=== PATIENT | male | born 1945 | race Caucasian/White ===

== ENCOUNTER 2022-09-24 14:09 | Inpatient (IN) | payer MEDICARE, SELFPAY ==
[2022-09-24] VITALS (10 sets, daily range): BP systolic 130–179; BP diastolic 79–120; PULSE 73–144; RESP 17–27; TEMP 36.2; O2SAT 90–96; BMI 26.4
--- NOTE | 2022-09-24 14:34 | XR_ITS ---
WS: [id number] PORTABLE CHEST HISTORY: sob COMPARISON: 10/13/2016 Obscuration of the lower lung son bilaterally due to atelectasis and pleural fluid. More dense con solidation at the LEFT lung base. Mild pulmonary congestion. Small bilateral pleural effusions. No pn eumothorax. Cardiac size: Enlarged heart has progressed since 2017. Mediastinum/Aorta: Normal mediastinum. No osseous abnormality seen. XR/XR chest 1V portable [id number] IMPRESSION: 1. Enlarged cardiac silhouette. Cardiac silhouette has significantly increased in size since 2017. 2. Bilateral pleural effusions with consolidations at the lung bases. Effusion s are small. More dense consolidation at the LEFT lung base which may be underl gagan atelectasis or pneumonia.
--- NOTE | 2022-09-24 14:45 | W.ED.SOB ---
HPI - SOB/Dyspnea General: Chief Complaint: ER Hold Stated Complaint: SOB, congestion Time Seen by Provider: 09/24/22 14:33 History of Present Illness: HPI Narrative: This patient is a 77 year old presenting from home with shortness of breath and feeling like his heart is beating out of his chest. He has not felt well for about a month, with some cough, malaise, shortness of breath - but the current symptoms really got bad a few days ago. He has had severe SPICER, mild orthopnea. He reports that he had a fib year and years ago (maybe chronically?) but hasn't seen a doctor in years. He is supposed to be on lisinopril for HTN but hasn't been on that for years either. He denies chest pain. No leg swelling. No passing out. Up until a month ago he was very active. Physical Exam Const: COMMON NORMALS: no acute distress, patient oriented x3, no limitations and alert GENERAL APPEARANCE: cooperative and comfortable HENMT: HEAD & SCALP: normal to inspection FACE & SINUS: normal facial exam Eye: GENERAL EYE: appearance normal, both eyes and all related structures Neck/C-Spine: COMMON NORMALS: supple, no meningeal signs and no JVD Chest: COMMONS NORMALS: normal inspection of the chest Resp: EFFORT & INSPECTION: Yes tachypneic and Yes uses accessory muscles AUSCULTATION: rales bilateral Cardio: COMMON NORMALS: no JVD, regular rate, regular rhythm and No murmurs present (Cardio) RATE: regular rate and tachycardic RHYTHM: regular rhythm and abnormal rhythm irregularly irregular OTHER: no edema GI: COMMON NORMALS: Normal to inspection, nondistended, normoactive bowel sounds present, Soft to palpation and non-tender INSPECTION: Yes normal to inspection AUSCULTATION: Yes normoactive bowel sounds PALPATION: Yes Soft to palpation Back/Pelvis: COMMON NORMALS: thoracic and lumbar spine normal to inspection Extremity: COMMON NORMALS: normal to inspection Neuro: COMMON NORMALS: patient oriented x3, moves all extremities, no focal motor deficits and no sensory deficits noted SENSORIUM/ORIENTATION: Yes alert MENINGEAL SIGNS: Yes no meningeal signs Psych: COMMON NORMALS: mental status grossly normal, cooperative and normal affect Skin: COMMON NORMALS: no rashes or lesions noted and turgor normal GENERAL SKIN EXAM: no rashes or lesions noted and turgor normal Course Vital Signs: Vital signs: Vital Signs Temperature 97.2 F L 09/24/22 14:17 Pulse Rate 90 09/25/22 06:00 Respiratory Rate 17 09/25/22 06:00 Blood Pressure 151/93 09/25/22 06:00 Pulse Oximetry 92 09/25/22 06:00 Oxygen Delivery Me thod 09/25/22 05:14 MDM - SOB/Dyspnea Medical Decision Making Patient with RVR afib, questionable if this is new onset, but he is not on any medications currently. He had a viral infection within the past month - possibly flu with temps of 101 - and hasn't rebounded from that. He is markedly dyspneic - just with having him sit up in bed to listen to his lungs caused 3 word dyspnea for several minutes. Unclear if he has always been in afib and just not treated - or if he has had it paroxysmally or if what he thought was afib in the past was something different. Regradless - work up to find an underlying cause (MA, CHF, PE, infection, myocarditis, electrolyte abnormality, dehydration, anemia, pneumonia) and to manage the tachycardia and dyspnea. Cardizem given as a bolus and heart rate came down to the 80's and appeared to be flutter. He gradually went back up into the 120's and so the drip was started. He is noted to have pleural effusions and cardiomegaly on CXT - as well as a pericardial effusion on CT. No PE. Elevated d-dimer likely related to the effusions. BNP elevated, CXR supports CHF. Will admit for management of fluid status and atrial flutter. Lasix and cardizem administered in the ED. Lab Data 09/24/22 14:46 09/24/22 14:46 Labs/Radiology: Radiology Impressions Chest X-Ray 09/24/22 14:34 IMPRESSION: 1. Enlarged cardiac silhouette. Cardiac silhouette has significantly increased in size since 2017. 2. Bilateral pleural effusions with consolidations at the lung bases. Effusions are small. More dense consolidation at the LEFT lung base which may be underlying atelectasis or pneumonia. Chest CTA 09/24/22 15:25 IMPRESSION: 1. No pulmonary embolism. Limited opacification LEFT lower lobe pulmonary arteries. 2. Small LEFT pleural effusion with LEFT partial LEFT lower lobe atelectasis. 3. Enlarged heart with circumferential pericardial effusion. Heart was near normal size on 10/13/2016 Venous Duplex 09/24/22 18:26 IMPRESSION: No evidence of deep vein thrombosis. Laboratory Results WBC 15.6 10^3/uL (4.0-10.0) H 09/24/22 14:46 RBC 4.74 10^6/uL (4.1-5.3) 09/24/22 14:46 Hgb 13.7 g/dL (11.7-16.6) 09/24/22 14:46 Hct 42.2 % (42.0-52.0) 09/24/22 14:46 MCV 89.0 fl (80-94) 09/24/22 14:46 MCH 28.9 pg (28.0-34.0) 09/24/22 14:46 MCHC 32.5 g/dL (30.0-36.0) 09/24/22 14:46 RDW 12.3 % (12.1-15.1) 09/24/22 14:46 Plt Count 402 10^3/cmm (130-400) H 09/24/22 14:46 MPV 9.2 fL (7.4-10.4) 09/24/22 14:46 Neut % (Auto) 80.7 % 09/24/22 14:46 Lymph % (Auto) 12.2 % 09/24/22 14:46 [place] % (Auto) 5.7 % 09/24/22 14:46 Eos % (Auto) 0.3 % 09/24/22 14:46 Baso % (Auto) 0.3 % 09/24/22 14:46 Neut # (Auto) 12.62 10^3/uL (1.8-7.7) H 09/24/22 14:46 Lymph # (Auto) 1.9 10^3/uL (0.8-4.8) 09/24/22 14:46 [place] # (Auto) 0.9 10^3/uL (0.2-0.9) 09/24/22 14:46 Eos # (Auto) 0.0 10^3/uL (0.0-0.8) 09/24/22 14:46 Baso # (Auto) 0.0 10^3/uL (0.0-0.1) 09/24/22 14:46 Nucleated RBC % (auto) 0 % 09/24/22 14:46 Nucleated RBCs # 0.0 /100WBC 09/24/22 14:46 PT 14.50 SECONDS (12.1-14.9) 09/24/22 14:46 INR 1.10 (0.8-1.2) 09/24/22 14:46 D-Dimer 2.58 ug/mIFEU (0-0.59) H 09/24/22 14:46 Sodium 137 mmol/L (136-145) 09/24/22 14:46 Potassium 4.4 mmol/L (3.5-5.1) 09/24/22 14:46 Chloride 103 mmol/L (98-107) 09/24/22 14:46 Carbon Dioxide 21 mmol/L (22-29) L 09/24/22 14:46 Anion Gap 17.4 (5-19) 09/24/22 14:46 BUN 14 mg/dL (8-23) 09/24/22 14:46 Creatinine 0.8 mg/dL (0.7-1.2) 09/24/22 14:46 GFR Calculation Not Reportable 09/24/22 14:46 Glucose 135 mg/dL (65-115) H 09/24/22 14:46 Estimat Average Glucose 128 09/24/22 14:46 Hemoglobin A1c 6.1 % (4.0-6.0) H 09/24/22 14:46 Calculated Osmolality 287 mOsm/kg (285-295) 09/24/22 14:46 Lactic Acid 1.1 mmol/L (0.5-2.2) 09/24/22 20:08 Calcium 9.4 mg/dL (8.5-10.5) 09/24/22 14:46 Magnesium 2.2 mg/dL (1.7-2.3) 09/24/22 14:46 Total Bilirubin 0.5 mg/dL (0.15-1.2) 09/24/22 14:46 AST 14 U/L (0-40) 09/24/22 14:46 ALT 19 U/L (0-41) 09/24/22 14:46 Alkaline Phosphatase 118 U/L (40-130) 09/24/22 14:46 Troponin T Baseline 33 ng/L (0-15) H 09/24/22 14:46 Troponin T 120 Minute 30.72 ng/L (0-15) H 09/24/22 16:24 Delta Troponin T -2.28 ABS# (0-10) L 09/24/22 16:24 Troponin T Hi Sens 6Hr 48.21 ng/L (0-15) H 09/24/22 20:08 Troponin T Hi Sens 6Hr Delta 15.21 ng/L (0-12) H* 09/24/22 20:08 NT-Pro-B Natriuret Pep 6431 pg/mL (0-450) H 09/24/22 14:46 Total Protein 7.3 g/dL (6.6-8.7) 09/24/22 14:46 Albumin 3.7 g/dL (3.5-5.2) 09/24/22 14:46 Globulin 3.6 g/dL (1.3-4.6) 09/24/22 14:46 Triglycerides 60 mg/dL (0-150) 09/24/22 20:08 Cholesterol 152 mg/dL (0-200) 09/24/22 20:08 LDL Cholesterol, Calc 111 mg/dL (50-129) 09/24/22 20:08 HDL Cholesterol 29 mg/dL (60-100) L 09/24/22 20:08 LDL/HDL Ratio 3.83 RATIO (0.00-3.22) H 09/24/22 20:08 Cholesterol/HDL Ratio 5.24 mg/dL (1.0-5.00) H 09/24/22 20:08 Lipase 11 U/L (13-60) L 09/24/22 14:46 Procalcitonin 0.06 ng/mL (0-0.5) 09/24/22 20:08 TSH 0.95 uIU/mL (0.27-4.20) 09/24/22 20:08 Urine Color Colorless (Yellow) 09/24/22 19:34 Urine Appearance Clear (CLEAR) 09/24/22 19:34 Urine pH 6 (5-7) 09/24/22 19:34 Ur Specific [place] 1.010 (1.005-1.030) 09/24/22 19:34 Urine Protein Neg (Negative) 09/24/22 19:34 Urine Glucose (UA) Norm (Normal) 09/24/22 19:34 Urine Ketones Negative (Negative) 09/24/22 19:34 Urine Blood Neg (Negative) 09/24/22 19:34 Urine Nitrate Negative (Negative) 09/24/22 19:34 Urine Bilirubin Neg (Negative) 09/24/22 19:34 Urine Urobilinogen Neg mg/dL (Negative) 09/24/22 19:34 Ur Leukocyte Esterase Negative (Negative) 09/24/22 19:34 Coronavirus 229E (PCR) Not detected (NOT DETECT) 09/24/22 19:34 Influenza Type A Ag negative (Negative) 09/24/22 19:34 Influenza Type B Ag negative (Negative) 09/24/22 19:34 SARS-CoV-2 (PCR) Not detected (NOT DETECT) 09/24/22 19:34 Discharge Plan Discharge Patient Disposition: Admitted As Inpatient Admit Provider: Angela Peters Clinical Impression: Atrial fibrillation and flutter, New onset of congestive heart failure, Pleural effusion, Pericardial effusion, 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) Condition: Stable Coding Level of Care Code ED Household Manager for Chg Fwd Exam Comprehensive
[2022-09-24] MEDS: dilTIAZem 5 mg/mL SDV 5 mL 20 MG IVP (14:52)
[2022-09-24 14:58] LABS: Basophils % 0.3 %; Eosinophils % 0.3 %; Hematocrit 42.2 % (42.0-52.0); Hemoglobin 13.7 g/dL (11.7-16.6); Lymphocytes # 1.9 10^3/uL (0.8-4.8); Lymphocytes % 12.2 %; Mean Corpuscular HGB Conc 32.5 g/dL (30.0-36.0); Mean Corpuscular Hemoglobin 28.9 pg (28.0-34.0); Mean Platelet Volume 9.2 fL (7.4-10.4); Monocytes # 0.9 10^3/uL (0.2-0.9); Monocytes % 5.7 %; Neutrophils # 12.62 10^3/uL (1.8-7.7); Neutrophils % 80.7 %; Nucleated Red Blood Cells % 0 %; Platelet Count 402 10^3/cmm (130-400); Red Blood Count 4.74 10^6/uL (4.1-5.3); Red Cell Distribution Width 12.3 % (12.1-15.1); White Blood Count 15.6 10^3/uL (4.0-10.0)
[2022-09-24 15:14] LABS: D Dimer 2.58 ug/mIFEU (0-0.59)
[2022-09-24 15:18] LABS: Troponin(5th) Baseline 33 ng/L (0-15)
--- NOTE | 2022-09-24 15:25 | CT_ITS ---
WS: [id number] CT CHEST ANGIOGRAPHY WITH REFORMATS HISTORY: CP, SOB TECHNIQUE: Contiguous axial images are obtained through the chest during arterial injection of intrav enous contrast. Images are reconstructed to evaluate the pulmonary arteries. MIP imaging also reviewe d. All CT scans at [facility] use at least one of these dose optimization techniques: automat ed exposure control; mA and/or kV adjustment per patient size (includes targeted exams where dose is matched to clinical indication); or iterative reconstruction. CONTRAST: Omnipaque 350; 95 mL IV. DLP: 438.73 mGy.cm COMPARISON: None available. Adequate opacification of the central pulmonary arteries. No central filling defects. Mixed opacifica tion of blood and contrast in the LEFT lower lobe is due to the atelectasis and pleural effusion. Mil dly prominent pulmonary artery. Atherosclerotic changes within the thoracic aorta. Heart is enlarged. Moderate enlargement greatest involving the LEFT heart chambers. No RIGHT heart strain. Moderate cor onary artery calcifications. Mild diffuse circumferential pericardial effusion. RIGHT tricuspid regur gitation into the IVC and hepatic veins. Breathing motion artifact. There is mild pulmonary edema. Small layering LEFT pleural effusion with a telectasis. No pneumonia. Small mediastinal and hilar lymph nodes. Calcification along the RIGHT diaphragmatic surface. Visualized upper abdomen is negative for acute process. Increase in thoracic kyphosis. CT/CT angio chest PE protcl [id number] IMPRESSION: 1. No pulmonary embolism. Limited opacification LEFT lower lobe pulmonary duran kishore. 2. Small LEFT pleural effusion with LEFT partial LEFT lower lobe atelectasis. 3. Enlarged heart with circumferential pericardial effusion. Heart was near no rmal size on 10/13/2016
[2022-09-24 15:26] LABS: Alanine Aminotransferase 19 U/L (0-41); Albumin Level 3.7 g/dL (3.5-5.2); Alkaline Phosphatase 118 U/L (40-130); Anion Gap 17.4 (5-19); Aspartate Amino Transferase 14 U/L (0-40); Blood Urea Nitrogen 14 mg/dL (8-23); Calcium 9.4 mg/dL (8.5-10.5); Carbon Dioxide 21 mmol/L (22-29); Chloride 103 mmol/L (98-107); Globulin 3.6 g/dL (1.3-4.6); Glucose 135 mg/dL (65-115); Lipase 11 U/L (13-60); Magnesium 2.2 mg/dL (1.7-2.3); NT Pro B Type Natriuretic Pept 6431 pg/mL (0-450); Osmolality Calculated 287 mOsm/kg (285-295); Potassium 4.4 mmol/L (3.5-5.1); Sodium 137 mmol/L (136-145); Total Bilirubin 0.5 mg/dL (0.15-1.2); Total Protein 7.3 g/dL (6.6-8.7)
[2022-09-24] MEDS: iohexol 350 mg/mL 500 mL Btl (per mL) IV (15:40)
--- NOTE | 2022-09-24 15:56 | ECG_ITS ---
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 Measurements Intervals [place] Rate: 112 P: 0 [place]: 0 QRS: -39 QRSD: 119 T: 31 QT: 363 QTc: 496 Interpretive Statements ATRIAL FLUTTER WITH RAPID VENTRICULAR RESPONSE LEFT AXIS DEVIATION [QRS AXIS < -30] INCOMPLETE RIGHT BUNDLE BRANCH BLOCK [90+ ms QRS DURATION, TERMINAL R IN V1/V2, 40+ ms S IN I/aVL/V4/V5/V6] SEPTAL MYOCARDIAL INFARCTION , OF INDETERMINATE AGE [40+ ms Q WAVE IN V1/V2] No previous ECG available for comparison Electronically Signed On 09-24-2022 17:53:13 IMPROVEMENT MANAGER by James Serrano M.D. [id number]
[2022-09-24 16:53] LABS: Troponin 5 2HR 30.72 ng/L (0-15)
[2022-09-24 16:56] LABS: Troponin 5 2HR Delta -2.28 ABS# (0-10)
[2022-09-24] MEDS: FUROsemide 10 mg/mL SDV 4mL 40 MG IVP (17:15)
[2022-09-24] MEDS: dilTIAZem 100 MG in sodium chloride 0.9% (add-van) 100 ML IV (17:16)
--- NOTE | 2022-09-24 17:28 | PM.HP ---
Providers/Chief Complaint Chief Complaint: SOB, congestion History of Present Illness Gianni Patel is a 77 year old male with no significant past medical history except possible atrial fibrillation and hypertension presented to the hospital with shortness of breath and palpitations. He stated that his heart was beating out of his chest. He says he has not been feeling well for about a month and has been having some cough shortness of breath and generalized ill feeling. He says his symptoms have worsened over the last few days. He has been having severe 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 and mild orthopnea. He says he was diagnosed with atrial fibrillation years ago but has not really been treated for it and has not seen a doctor. He says he also apparently had blood pressure and was supposed to be on lisinopril but does not take that either. He denies any chest pain at this time denies lower extremity swelling. Denies dizziness or passing out. He says till about a month ago he has been really active. And then started declining. Denies nausea, vomiting, diarrhea, constipation at this time. He did state that he had some sort of a viral infection within the last month possibly flu he had temperature 101. Unsure if he had COVID or not. ED course: On arrival blood pressure 160/104, respiratory 21, pulse 108, temperature 97.2. Patient Any medications at home. Patient was given a normal saline bolus and Cardizem bolus was given. Heart rate did come down to 80s and appears to be atrial flutter. BNP elevated at 6000. Chest x-ray shows pulmonary edema. Patient started on Cardizem drip and hospitalist requested to admit the patient. Chest x-ray did show enlarged cardiac silhouette since 2017. Bilateral pleural effusions with consolidations at lung bases effusions are small more dense consolidation at left base which may be underlying atelectasis or pneumonia. CTA was done since D-dimer was 2.56. No pulmonary embolism. Limited opacification left lower lobe pulmonary arteries. Small left pleural effusion with left partial left lower lobe atelectasis. Enlarged heart with circumferential pericardial effusion heart was near normal size on . Medications/Allergies Home Medications Medication Instructions Recorded Confirmed Last Taken Type aspirin 325 mg tablet 325 mg PO DAILY PAIN/CHEST PAIN 09/24/22 09/24/22 09/24/22 History Allergies Allergy/AdvReac Type Severity Reaction Status Date / Time No Known Allergies Allergy Verified 09/24/22 15:03 Vitals/I&O/Wt Last Vital Signs Temp 97.2 F L 09/24/22 14:17 Pulse 115 H 09/24/22 17:19 Resp 27 H 09/24/22 17:19 BP 158/110 09/24/22 17:19 Pulse Ox 95 09/24/22 17:19 O2 Del Method 09/24/22 17:19 Weight last 48 hrs Weight 78.925 kg Physical Exam Narrative: General: Alert oriented x3, patient seen sitting up in bed, slightly short of breath. Does not have any conversational dyspnea at this time. However on room air saturating well. HEENT: Normocephalic, atraumatic, EOMI, breathing comfortably okay Cardio: Irregularly irregular tachycardia, normal S1-S2 Respiratory: Bilateral crackles at bases mild rhonchi present. GI: Abdomen soft, nontender, bowel sounds + Extremities: No bilateral lower extremity edema. Data 09/24/22 14:46 09/24/22 14:46 A&P Assessment and plan (1) Hypertension: (2) Atrial fibrillation and flutter: (3) New onset of congestive heart failure: (4) Atelectasis: (5) Pleural effusion: (6) Pericardial effusion: Plan #Atrial fibrillation with RVR #New onset heart failure #Pericardial effusion, circumferential and small in size, does not seem to be tamponade however will rule out #Hypertension #Left pleural effusion with left partial left lower lobe atelectasis #CAD, and previous IN history, unable to give me much history. ? Continue on Cardizem drip at this time and titrate ? Lasix 40 IV daily ? [place] for accurate ins and O's ? Check echo to rule out tamponade ? May need to repeat a limited echo and heart rate is more normal to assess EF accurately ? Hopefully left pleural effusion will improve with Lasix however if it does not we may need to do a thoracentesis ? Check TSH, procalcitonin, hemoglobin A1c, lipid profile ? Check magnesium. Keep potassium above 4 and magnesium above 2. ? Check COVID, influenza ? I will empirically cover for pneumonia with ceftriaxone and azithromycin WBC count is also elevated. ? Patient will need a primary care doctor and cardiology follow-up at discharge ? Trend troponins. EKG did show incomplete right bundle branch block and Q waves in V1 V2. Baseline and 2-hour troponin delta troponin -2.28. 6 hours pending at this time. Full code DVT prophylaxis: Lovenox 40 daily Attestations Medical Necessity Statement*: Patient will cross greater than 2 midnight stay for management of A. fib with RVR n new onset heart failure. Coding Level of Care Code Acute Code for [facility] Fwd Diagnoses Hypertension I10 Atrial fibrillation and flutter I48.91; I48.92 New onset of congestive heart failure I50.9 Atelectasis J98.11 Pleural effusion J90 Pericardial effusion I31.39
--- NOTE | 2022-09-24 18:26 | USR_ITS ---
PROCEDURE INFORMATION: Exam: US Duplex Lower Extremity Veins, Bilateral Exam date and time: 09/24/2022 6:46 PM Age: 77 years old Clinical indication: Other: SOB; Additional info: R/O dvt TECHNIQUE: Imaging protocol: Real-time duplex ultrasound of the bilateral extremities with 2-D seth scale, color Doppler flow and spectral waveform analysis including responses to compression and other maneuvers (when performed) with image documentation. Complete exam focused on the lower extremity veins. COMPARISON: CT abdomen pelvis w con* [id number] 10/13/2016 7:02 PM FINDINGS: Right deep veins: Unremarkable. The common femoral, femoral, proximal profunda femoral and popliteal veins are patent without thrombus. Normal Doppler waveforms. Normal compressibility and/or augmentation response. Right superficial veins: Saphenofemoral junction is patent without thrombus. Left deep veins: Unremarkable. The common femoral, femoral, proximal profunda femoral and popliteal veins are patent without thrombus. Normal Doppler waveforms. Normal compressibility and/or augmentation response. Left superficial veins: Saphenofemoral junction is patent without thrombus. Soft tissues: Unremarkable. US/[place] [id number] IMPRESSION: No evidence of deep vein thrombosis.
[2022-09-24] MEDS: enoxaparin 40 mg/0.4 mL Syringe SUBCUT (19:23)
--- NOTE | 2022-09-24 19:29 | PC.NURSE ---
Pt refused connor catheter placement
[2022-09-24 19:43] LABS: Add Urine Microscopic? NO; Charge for UA Resulting for Rev
[2022-09-24 19:56] LABS: Urine Appearance Clear (CLEAR); Urine Color Colorless (Yellow)
[2022-09-24 19:57] LABS: Bilirubin Urine Neg (Negative); Blood Urine Neg (Negative); Glucose Urine UA Norm (Normal); Ketones Urine Negative (Negative); Leukocyte Esterase Urine Negative (Negative); Nitrate Urine Negative (Negative); Protein Urine Neg (Negative); Urobilinogen Urine Neg (Negative); pH Urine 6 (5-7)
[2022-09-24 20:06] LABS: Influenza A by IFA negative (Negative); Influenza B by IFA negative (Negative)
[2022-09-24 20:55] LABS: Lactic Sepsis W/Reflex 1.1 mmol/L (0.5-2.2)
[2022-09-24 20:56] LABS: Troponin 5 6HR 48.21 ng/L (0-15)
[2022-09-24 20:56] LABS: Estmated Average Glucose 128; Hemoglobin A1C 6.1 % (4.0-6.0)
[2022-09-24 20:57] LABS: Chol HDL Ratio 5.24 mg/dL (1.0-5.00); Cholesterol 152 mg/dL (0-200); HDL Cholesterol 29 mg/dL (60-100); LDL Cholesterol Calculated 111 mg/dL (50-129); LDL HDL Ratio 3.83 RATIO (0.00-3.22); Triglycerides 60 mg/dL (0-150)
[2022-09-24 21:04] LABS: Procalcitonin 0.06 ng/mL (0-0.5)
[2022-09-24 21:06] LABS: Troponin 5 6HR Delta 15.21 ng/L (0-12)
[2022-09-24 21:37] LABS: Adenovirus Not Detected (NOT DETECT); Chlamydia Pneumoniae Not Detected (NOT DETECT); Coronavirus 229E,HKU1,NL63,OC4 Not Detected (NOT DETECT); Human Metapneumovirus Not Detected (NOT DETECT); Human Rhinovirus/Enterovirus Not Detected (NOT DETECT); Influenza A Not Detected (NOT DETECT); Influenza A H1 Not Detected (NOT DETECT); Influenza A H1-2009 Not Detected (NOT DETECT); Influenza A H3 Not Detected (NOT DETECT); Influenza B Not Detected (NOT DETECT); Mycoplasma Pneumoniae Not Detected (NOT DETECT); Parainfluenza Virus Type 1 Not Detected (NOT DETECT); Parainfluenza Virus Type 2 Not Detected (NOT DETECT); Parainfluenza Virus Type 3 Not Detected (NOT DETECT); Parainfluenza Virus Type 4 Not Detected (NOT DETECT); Respiratory Syncytial Virus A Not Detected (NOT DETECT); Respiratory Syncytial Virus B Not Detected (NOT DETECT); SARS-COV-2 Not Detected (NOT DETECT)
--- NOTE | 2022-09-24 21:46 | ECG_ITS ---
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 Measurements Intervals [place] Rate: 87 P: 0 [place]: 0 QRS: -48 QRSD: 118 T: 236 QT: 411 QTc: 495 Interpretive Statements ATRIAL FLUTTER WITH ABERRANT CONDUCTION OR VENTRICULAR PREMATURE COMPLEXES INCOMPLETE RIGHT BUNDLE BRANCH BLOCK [90+ ms QRS DURATION, TERMINAL R IN V1/V2, 40+ ms S IN I/aVL/V4/V5/V6] LEFT ANTERIOR FASCICULAR BLOCK [QRS AXIS <= -45, QR IN I, RS IN II] SEPTAL MYOCARDIAL INFARCTION , OF INDETERMINATE AGE [40+ ms Q WAVE IN V1/V2] MODERATE T-WAVE ABNORMALITY, CONSIDER ANTEROLATERAL ISCHEMIA [-0.1+ mV T-WAVE IN V3-V6] MODERATE T-WAVE ABNORMALITY, CONSIDER INFERIOR ISCHEMIA [-0.1+ mV T-WAVE IN II/aVF] Compared to ECG 09/24/2022 15:56:24 Ventricular premature complex(es) now present Aberrant conduction of supraventricular beat(s) now present Left anterior fascicular block now present Left-axis deviation no longer present Myocardial infarct finding still present Electronically Signed On 09-24-2022 22:58:01 ASSISTANT ANALYST by James Serrano M.D. [id number]
[2022-09-24 21:51] LABS: Thyroid Stimulating Hormone 0.95 uIU/mL (0.27-4.20)
[2022-09-25] VITALS (19 sets, daily range): BP systolic 128–172; BP diastolic 73–96; PULSE 66–90; RESP 14–23; TEMP 37–37.2; O2SAT 91–97; BMI 22.8
[2022-09-25 01:42] LABS: Basophils # 0.1 10^3/uL (0.0-0.1); Basophils % 0.4 %; Eosinophils # 0.1 10^3/uL (0.0-0.8); Eosinophils % 0.7 %; Hematocrit 43.6 % (42.0-52.0); Hemoglobin 14.1 g/dL (11.7-16.6); Lymphocytes # 1.8 10^3/uL (0.8-4.8); Mean Corpuscular HGB Conc 32.3 g/dL (30.0-36.0); Mean Corpuscular Hemoglobin 28.5 pg (28.0-34.0); Mean Corpuscular Volume 88.1 fl (80-94); Mean Platelet Volume 9.1 fL (7.4-10.4); Monocytes # 0.8 10^3/uL (0.2-0.9); Monocytes % 6.3 %; Neutrophils # 9.36 10^3/uL (1.8-7.7); Neutrophils % 76.9 %; Nucleated Red Blood Cells % 0 %; Platelet Count 354 10^3/cmm (130-400); Red Blood Count 4.95 10^6/uL (4.1-5.3); Red Cell Distribution Width 12.3 % (12.1-15.1); White Blood Count 12.2 10^3/uL (4.0-10.0)
[2022-09-25 01:55] LABS: INR 1.13 (0.8-1.2)
[2022-09-25 02:04] LABS: Anion Gap 17.3 (5-19); Blood Urea Nitrogen 12 mg/dL (8-23); Calcium 9.1 mg/dL (8.5-10.5); Carbon Dioxide 25 mmol/L (22-29); Chloride 99 mmol/L (98-107); Glucose 159 mg/dL (65-115); Magnesium 2.1 mg/dL (1.7-2.3); Osmolality Calculated 287 mOsm/kg (285-295); Potassium 4.3 mmol/L (3.5-5.1); Sodium 137 mmol/L (136-145)
[2022-09-25] MEDS: dilTIAZem 100 MG in sodium chloride 0.9% (add-van) 100 ML 10 MG IV (03:14)
--- NOTE | 2022-09-25 06:00 | USCV_ITS ---
Gianni Patel Age: 77 Gender: M : 1945 Exam Date: 09/25/2022 10:44 Ordering Phys: Angela Peters MD Technologist: MARQUIS Exam Location: [facility] [place] Indication: Atrial fibrillation BP: 156 / 81 HR: 80 Rhythm: Atrial fibrillation Technical Quality: Adequate MEASUREMENTS (Male / Female) Normal Values 2D ECHO LV Diastolic Diameter PLAX 5.1 cm 4.2 - 5.9 / 3.9 - 5.3 cm LV Systolic Diameter PLAX 4.3 cm IVS Diastolic Thickness 0.9 cm 0.6 - 1.0 / 0.6 - 0.9 cm IVS Systolic Thickness 1.0 cm LVPW Diastolic Thickness 0.9 cm 0.6 - 1.0 / 0.6 - 0.9 cm LVPW Systolic Thickness 0.9 cm LVOT Diameter 2.3 cm LV Ejection Fraction 2D Teich 31.9 % LV Ejection Fraction MOD 2C 31.8 % LV Ejection Fraction 2C AL 31.7 % LA Diameter 3.9 cm IVC Diameter 2.6 cm M-MODE Aortic Annulus Diameter 3.6 cm LA Ao Ratio MM 1.2 MV E Point Septal Separation 1.4 cm DOPPLER AV Peak Velocity 143.0 cm/s LVOT Peak Velocity 81.0 cm/s AV Area Cont Eq vti 1.9 cm squared AV Area Cont Eq pk 2.4 cm squared MV Area PHT 6.5 cm squared Mitral E to A Ratio 2.1 MV E' Velocity 71.5 cm/s Mitral E to MV E' Ratio 14.3 Mitral E to LV E' Lateral Ratio 14.4 Mitral E to LV E' Septal Ratio 14.1 TR Peak Velocity 208.3 cm/s TR Peak Gradient 17.4 mmHg TV Peak E Velocity 58.0 cm/s Right Atrial Pressure 3.0 mmHg Pulmonary Artery Systolic Pressu 20.4 mmHg PV Peak Velocity 79.0 cm/s FINDINGS Left Ventricle Normal left ventricular cavity size. Increased left ventricular wall thickness. Moderately decreased left ventricular systolic function. Left ventricular ejection fraction is estimated at 35 %. Global left ventricular hypokinesis. Abnormal diastolic function. Right Ventricle Normal right ventricular size and systolic function. Right Atrium Normal right atrial size. Left Atrium Mildly increased left atrial size. Mitral Valve Thickened mitral valve. No mitral valve stenosis. Mild mitral valve regurgitation. Aortic Valve Structurally normal trileaflet aortic valve. No aortic valve stenosis. No aortic valve regurgitation. Tricuspid Valve Structurally normal tricuspid valve. No tricuspid valve stenosis. Trace to mild tricuspid valve regurgitation. Pulmonic Valve Structurally normal pulmonic valve. No pulmonary valve stenosis.No significant pulmonary valve regurgitation. Pericardium Trivial pericardial effusion. No evidence of hemodynamic compromise. Aorta Normal sized aortic root. IVC Dilated IVC with normal respiratory variation. CONCLUSIONS 1. Normal left ventricular cavity size. Increased left ventricular wall thickness. Moderately decreased left ventricular systolic function. Left ventricular ejection fraction is estimated at 35 %. Global left ventricular hypokinesis. Abnormal diastolic function. 2. Mild mitral valve regurgitation. 3. No prior similar studies to compare. Ashlie Larson MD (Electronically Signed) Final Date: 25 September 2022 17:25 Amended: 25 September 2022 17:50 C
[2022-09-25] MEDS: lisinopril 20 mg Tablet PO ×2 (09:14→10:12)
[2022-09-25] MEDS: aspirin 81 mg EC Tablet PO (09:14)
[2022-09-25] MEDS: FUROsemide 10 mg/mL SDV 4mL 40 MG IVP (09:15)
[2022-09-25] MEDS: atorvastatin 40 mg Tablet PO ×2 (10:22→21:05)
[2022-09-25] MEDS: dilTIAZem 60 mg Tablet PO (13:18)
--- NOTE | 2022-09-25 14:59 | PM.CONSULT ---
Documented by User: Ashlie Larson MD 09/25/22 18:40 Providers/Reason For Consult Reason for Consult*: Newly diagnosed heart failure Attending Physician: Angela Peters MD History of Present Illness History of Present Illness Gianni Patel is a 77 year old male presented with c/o shortness of breath and palpitations on and off for sometime.? He also c/o 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 He denies any chest pain, lower extremity swelling, dizziness or passing out.? He gives vague h/o mild heart attack 10+ years ago and coronary angiogram did not show any obstructive disease. He is a former smoker (40+ PKY h/o smoking quit about 10 years ago). On arrival, blood pressure 160/104. He was noted to be in atrial flutter with RVR.? BNP elevated at 6000.? Chest x-ray shows pulmonary edema.? CTA showed?no pulmonary embolism.? Limited opacification left lower lobe pulmonary arteries.? Small left pleural effusion with left partial left lower lobe atelectasis.? He received lasix 40 IV x 1 in ER and was started on cardizem gtt. He feels better. No CP. Review of Systems General: Reports: 10 or more systems reviewed and unremarkable except in HPI and below Const: Denies: fever(s), chills, change in appetite, change in weight, fatigue or malaise Eyes: Denies: change in vision ENMT: Denies: throat pain, swelling of lips/tongue or nasal congestion Card: Reports: edema (minimal); Denies: chest pain Resp: Denies: dyspnea or chest congestion GI: Denies: abdominal pain, nausea, vomiting, heartburn, diarrhea, constipation or hematochezia : Denies: dysuria or hematuria Musc: Denies: back pain, extremity swelling or joint pain Skin/Breast: Denies: rash Psych: Denies: anxiety or depression Endo: Denies: tired all the time Collin/Lymph: Denies: easy bruising, easy bleeding or petechiae All/Imm: Denies: throat swelling or tongue swelling Medications/Allergies Home Medications Medication Instructions Recorded Confirmed Last Taken Type aspirin 325 mg tablet 325 mg PO DAILY PAIN/CHEST PAIN 09/24/22 09/24/22 09/24/22 History Allergies Allergy/AdvReac Type Severity Reaction Status Date / Time No Known Allergies Allergy Verified 09/24/22 15:03 Current Medications Generic Name Dose Route Start Last Admin Trade Name Nahomy PRN Reason Stop Dose Admin Aspirin 81 mg 09/25/22 09:00 09/25/22 09:14 Aspirin 81 Mg Ec Tablet PO 81 mg DAILY MCKENZIE Administration Atorvastatin Calcium 40 mg 09/25/22 10:01 09/25/22 10:22 Atorvastatin 40 Mg Tablet PO 40 mg BEDTIME MCKENZIE Administration Diltiazem HCl 60 mg 09/25/22 13:00 09/25/22 13:18 Diltiazem 60 Mg Tablet PO 60 mg Q6H MCKENZIE Administration Enoxaparin Sodium 40 mg 09/24/22 18:30 09/24/22 19:23 Enoxaparin 40 Mg/0.4 Ml Syringe SUBCUT 40 mg Q24H MCKENZIE Administration Furosemide 40 mg 09/25/22 09:00 09/25/22 09:15 Furosemide 10 Mg/Ml Sdv 4ml IVP 40 mg Q24H MCKENZIE Administration Diltiazem HCl 100 mg/ Sodium 100 mls @ 0 mls/hr 09/24/22 17:15 09/25/22 03:14 Chloride IV 10 mg/hr .Q0M MCKENZIE 10 mls/hr Administration Protocol Per Protocol Lisinopril 20 mg 09/25/22 08:44 09/25/22 10:12 Lisinopril 20 Mg Tablet PO 20 mg DAILY MCKENZIE Administration Vitals/I&O/Wt Last Vital Signs Temp 97.2 F L 09/24/22 14:17 Pulse 74 09/25/22 12:21 Resp 14 09/25/22 12:21 BP 150/94 09/25/22 12:21 Pulse Ox 92 09/25/22 12:21 O2 Del Method 09/25/22 12:21 09/24/22 09/25/22 09/25/22 22:59 06:59 14:59 Intake Total 11.583 / 11.583 104.417 / 116.000 Output Total 1500 / 1500 1000 / 1000 Balance 11.583 / 11.583 -1395.583 / -1384.000 -1000 / -1000 Weight last 48 hrs Weight 174 lb Physical Exam Const: COMMON NORMALS: no acute distress, patient oriented x3 and alert GENERAL APPEARANCE: cooperative, comfortable, well kempt and well hydrated HENMT: COMMON NORMALS: hearing grossly normal bilaterally and external ears normal FACE & SINUS: normal facial exam EXTERNAL EAR: Yes external ears normal Eye: COMMON NORMALS: EOMs intact bilaterally and no scleral icterus GENERAL EYE: appearance normal, both eyes and all related structures ALIGNMENT: Yes alignment normal Neck/C-Spine: COMMON NORMALS: supple and no JVD GENERAL: Yes normal visual inspection CAROTIDS: Yes normal carotid upstroke Chest: COMMONS NORMALS: normal inspection of the chest and normal palpation of entire chest wall CHEST: Yes Symmetrical chest wall rise and No tenderness Resp: COMMON NORMALS: clear to auscultation bilaterally AUSCULTATION: clear to auscultation bilaterally, no crackles, no rales, no rhonchi and no wheezes Cardio: COMMON NORMALS: no JVD, regular rate, S1 normal heart sound present and S2 normal heart sound present PALPATION: normal PMI RATE: regular rate HEART SOUNDS: S1 normal heart sound present, S2 normal heart sound present, no murmurs and Abnormal heart opening sounds other (irregular) BRUITS: no carotid bruits GI: COMMON NORMALS: Soft to palpation AUSCULTATION: Yes normoactive bowel sounds PALPATION: Yes Soft to palpation, No Tenderness to palpation present (GI), No Guarding due to palpation present (GI) and No Rigid due to palpation Extremity: GENERAL: No cyanosis, Yes edema (trace) and No pallor Neuro: COMMON NORMALS: patient oriented x3 and no focal motor deficits SENSORIUM/ORIENTATION: Yes alert Psych: COMMON NORMALS: Normal thought process present and speech normal APPEARANCE: Yes well kempt SPEECH: Yes normal speech MOOD & AFFECT: Yes euthymic mood THOUGHT PROCESS: Normal thought process present THOUGHT CONTENT: Yes Normal thought content present Data 09/25/22 01:35 09/25/22 01:35 Micro: Microbiology 09/24/22 20:11 Blood Culture - Preliminary Blood SPECIMEN COLLECTED 09/24/22 20:08 Blood Culture - Preliminary Blood SPECIMEN COLLECTED A&P Assessment and plan (1) CHF exacerbation: Newly diagnosed continue IV lasix -started on lisinopril. will start on coreg with plan to uptitrate. -Plan for stress test on Tuesday (2) Atrial flutter: [id number]= 4/9 get off cardizem gtt and start on coreg -start on lovenox (3) Hypertension: BP elelvated Plan Former Smoker Thank you for allowing me to participate in patient's care. Please feel free to call with questions or concerns. Patient seen today via Telehealth by agreement and consent of patient. Telehealth technology used during the visit include video and audio. Exam was conducted with the help of bedside nurse. Time spent in encounter 30 minutes with >50% time spent face to face. Coding Level of Care Code Acute Code for [facility]g Fwd Diagnoses CHF exacerbation I50.9 Atrial flutter I48.92 Hypertension I10 Documented by User: Angela Peters MD 09/25/22 16:42 Providers/Reason For Consult Consulting Physician/Specialty*: Dr. Larson/Cardiology Reason for Consult*: New onset heart failure Medications/Allergies Home Medications Medication Instructions Recorded Confirmed Last Taken Type aspirin 325 mg tablet 325 mg PO DAILY PAIN/CHEST PAIN 09/24/22 09/24/22 09/24/22 History Allergies Allergy/AdvReac Type Severity Reaction Status Date / Time No Known Allergies Allergy Verified 09/24/22 15:03 Data 09/25/22 01:35 09/25/22 01:35 A&P Assessment and plan (1) CHF exacerbation: (2) Atrial flutter: (3) Hypertension: Plan This is Dr. Peters signing this note. I accidentally opened this note while it was still in draft. This note completely belongs to community support worker Dr. Larson. I accidentally opened it. There is no way for me to get out of it without signing it. All information written above will be reflective of Dr. Larson's consult. Coding Level of Care Code Acute Code for Chg Fwd Diagnoses CHF exacerbation I50.9 Atrial flutter I48.92 Hypertension I10
--- NOTE | 2022-09-25 16:10 | P.PN_ITS ---
Subjective Subjective: Seen this morning. Rate controlled at this time. Echo is still pending. Still on Cardizem drip. Rhythm is atrial flutter. Urine output 2500 overnight. Vitals/I&O/Wt Last Vital Signs Temp 97.2 F L 09/24/22 14:17 Pulse 73 09/25/22 15:33 Resp 14 09/25/22 15:33 BP 158/86 09/25/22 15:33 Pulse Ox 92 09/25/22 15:33 O2 Del Method 09/25/22 15:33 09/25/22 09/25/22 09/25/22 06:59 14:59 22:59 Intake Total 104.417 / 116.000 97.667 / 97.667 Output Total 1500 / 1500 1000 / 1000 Balance -1395.583 / -1384.000 -902.333 / -902.333 Weight last 48 hrs Weight 78.925 kg Physical Exam Narrative: General: Alert oriented x3, patient seen sitting up in bed appearing comfortable at this time. at bedside. HEENT: Normocephalic, atraumatic, EOMI, breathing comfortably okay Cardio: Irregularly irregular, rate controlled, normal S1-S2 Respiratory: Lungs clear to auscultation GI: Abdomen soft, nontender, bowel sounds + Extremities: No bilateral lower extremity edema. Data 09/25/22 01:35 09/25/22 01:35 Micro: Microbiology 09/24/22 20:11 Blood Culture - Preliminary Blood SPECIMEN COLLECTED 09/24/22 20:08 Blood Culture - Preliminary Blood SPECIMEN COLLECTED A&P Assessment and plan (1) Hypertension: (2) Atrial fibrillation and flutter: (3) New onset of congestive heart failure: (4) Atelectasis: (5) Pleural effusion: (6) Pericardial effusion: Plan #Atrial fibrillation with RVR #NSTEMI, possibly demand ischemia #New onset heart failure #Pericardial effusion, circumferential and small in size -Echo pending. #Hypertension #Left pleural effusion with left partial left lower lobe atelectasis #CAD, and previous DC history, unable to give me much history. ? Turn off Cardizem drip. Coreg 6.25 twice daily ? Lasix 40 IV daily ? [place] for accurate ins and O's ? Check echo. Results pending at this time. ? Hopefully left pleural effusion will improve with Lasix however if it does not we may need to do a thoracentesis ? TSH 0.95, procalcitonin 0.06. LDL 111, cholesterol 152 ? Delta troponin 15.21 at 6 hours ? Magnesium 2.1. Potassium 4.3. ?COVID and influenza are negative. ? Continue empiric coverage with ceftriaxone and azithromycin. ? Patient will need a primary care doctor and cardiology follow-up at discharge ? Placed on therapeutic Lovenox. ? Stress test on Tuesday. ? Cardiology consulted. Recommendations appreciated ? Continue lisinopril 20 daily Full code DVT prophylaxis: Therapeutic Lovenox. Attestations Medical Necessity Statement*: Stress test on Tuesday. Continue therapeutic Lo venox. Coding Level of Care Code Acute Code for [facility] Diagnoses Hypertension I10 Atrial fibrillation and flutter I48.91; I48.92 New onset of congestive heart failure I50.9 Atelectasis J98.11 Pleural effusion J90 Pericardial effusion I31.39
[2022-09-25] MEDS: enoxaparin 80 mg/0.8 mL Syringe 70 MG SUBCUT (17:32)
[2022-09-25] MEDS: carvedilol 6.25 mg Tablet PO (17:33)
[2022-09-26] VITALS (60 sets, daily range): BP systolic 94–153; BP diastolic 73–99; PULSE 72–115; RESP 15–38; TEMP 36.8–37; O2SAT 92–97
[2022-09-26] MEDS: enoxaparin 80 mg/0.8 mL Syringe 70 MG SUBCUT ×2 (05:09→15:49)
--- NOTE | 2022-09-26 07:42 | PM.PN ---
Subjective Subjective: seen this am no acute events overnight denies chest pain, sob Vitals/I&O/Wt Last Vital Signs Temp 98.3 F 09/26/22 04:00 Pulse 100 09/26/22 05:58 Resp 18 09/26/22 04:00 BP 142/99 09/26/22 04:00 Pulse Ox 96 09/26/22 07:28 O2 Del Method 09/26/22 07:28 09/25/22 09/26/22 09/26/22 22:59 06:59 14:59 Intake Total 120 / 217.667 Output Total 680 / 1680 150 / 1830 Balance -560 / -1462.333 -150 / -1612.333 Weight last 48 hrs Weight 68.039 kg Weight 78.925 kg Physical Exam Narrative: General: Alert oriented x3, patient seen sitting up in bed appearing comfortable at this time HEENT: Normocephalic, atraumatic, EOMI, breathing comfortably okay Cardio:sinus rhythm, rate controlled, normal S1-S2 Respiratory: Lungs clear to auscultation GI: Abdomen soft, nontender, bowel sounds + Extremities: No bilateral lower extremity edema. Data 09/25/22 01:35 09/25/22 01:35 Micro: Microbiology 09/24/22 20:11 Blood Culture - Preliminary Blood NEGATIVE TO DATE 09/24/22 20:08 Blood Culture - Preliminary Blood NEGATIVE TO DATE A&P Assessment and plan (1) Hypertension: (2) Atrial fibrillation and flutter: (3) New onset of congestive heart failure: (4) Atelectasis: (5) Pleural effusion: (6) Pericardial effusion: Plan #Atrial fibrillation with RVR - resolved #NSTEMI, possibly demand ischemia #New onset heart failure #Pericardial effusion, circumferential and small in size -Echo pending. #Hypertension #Left pleural effusion with left partial left lower lobe atelectasis #CAD, and previous [place] history, unable to give me much history. ? continue on Coreg 6.25 twice daily ? Lasix 40 IV daily ? [facility] for accurate ins and O's ? Echo shows: 1. Normal left ventricular cavity size. Increased left ?ventricular wall thickness. Moderately decreased left ?ventricular systolic function. Left ventricular ejection ?fraction is estimated at 35 %. Global left ventricular ?hypokinesis. Abnormal diastolic function. ?2. Mild mitral valve regurgitation. ? TSH 0.95, procalcitonin 0.06. LDL 111, cholesterol 152 ? Delta troponin 15.21 at 6 hours ? Magnesium 2.1. Potassium 4.3. ?COVID and influenza are negative. ? Continue empiric coverage with ceftriaxone and azithromycin. ? Patient will need a primary care doctor and cardiology follow-up at discharge ? Placed on therapeutic Lovenox. ? Stress test on Tuesday. ? Cardiology consulted. Recommendations appreciated ? Continue lisinopril 20 daily Full code DVT prophylaxis: Therapeutic Lovenox. Attestations Medical Necessity Statement*: Stress test on Tuesday. Continue therapeutic Lovenox. Coding Level of Care Code Acute Code for [facility] Diagnoses Hypertension I10 Atrial fibrillation and flutter I48.91; I48.92 New onset of congestive heart failure I50.9 Atelectasis J98.11 Pleural effusion J90 Pericardial effusion I31.39
--- NOTE | 2022-09-26 08:09 | ECG_ITS ---
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 Interpretive Statements NAME OF STUDY: LEXISCAN SESTAMIBI STRESS TEST INDICATION: Newly diagnoised chf PROCEDURE: At the baseline, the blood pressure was 159/85 mm Hg with a heart rate of 109 bpm. The electrocardiogram showed atrial flutter, left axis deviation. Poor anterior R wave progression. Non specific ST-T wave changes. Isolated PVC's/ abberrently conducted beats. The Lexiscan was infused over a period of 20 seconds. A total of 0.4 milligrams of Lexiscan was infused. The stress phase was continued for a total of 5 minutes. Heart rate at the end of the stress phase was 74 bpm with a blood pressure of 159/87 mm Hg. The EKG at the peak infusion revealed no significant ST-T wave changes. ??? Sestamibi was injected 20 seconds after the Lexiscan infusion. ??? Blood pressure at the end of the recovery phase was 103/57 mm Hg with a heart rate of 74 beats per minute. ??? CONCLUSION: 1. No significant EKG changes with the LexiScan infusion. 2. No LexiScan induced chest pain or cardiac arrhythmia. 3. Normal blood pressure and heart rate response. 4. Sestamibi/sestamibi perfusion scan pending; see separate report. Electronically Signed On 10-06-2022 2:31:03 ECOLOGY TEACHER by Ashlie Larson M.D. [id number]
--- NOTE | 2022-09-26 08:11 | P.PN_ITS ---
Subjective Subjective: He is doing well overall, UO last 24 hours Medications: Reviewed: Yes Medication Review Details: Current Medications Acetaminophen (Acetaminophen 325 Mg Tablet) 650 mg PO Q6H PRN PRN Reason: Mild/Mod Pain Or Temp >/= 101 Aspirin (Aspirin 81 Mg Ec Tablet) 81 mg PO DAILY [facility] Last Admin: 09/25/22 09:14 Dose: 81 mg Atorvastatin Calcium (Atorvastatin 40 Mg Tablet) 40 mg PO BEDTIME [facility] Last Admin: 09/25/22 21:05 Dose: 40 mg Carvedilol (Carvedilol 6.25 Mg Tablet) 12.5 mg PO BID [facility] Enoxaparin Sodium (Enoxaparin 80 Mg/0.8 Ml Syringe) 70 mg SUBCUT Q12H [facility] Last Admin: 09/26/22 05:09 Dose: 70 mg Furosemide (Furosemide 10 Mg/Ml Sdv 4ml) 40 mg IVP Q24H [facility] Last Admin: 09/25/22 09:15 Dose: 40 mg Lisinopril (Lisinopril 20 Mg Tablet) 20 mg PO DAILY [facility] Last Admin: 09/25/22 10:12 Dose: 20 mg Ondansetron HCl (Ondansetron 2 Mg/Ml Sdv 2 Ml) 4 mg IVP Q8H PRN PRN Reason: vomiting, or N/V if npo Vitals/I&O/Wt Last Vital Signs Temp 98.5 F 09/26/22 07:52 Pulse 115 H 09/26/22 07:52 Resp 20 H 09/26/22 07:52 BP 142/99 09/26/22 04:00 Pulse Ox 95 09/26/22 07:52 O2 Del Method 09/26/22 07:52 09/25/22 09/26/22 09/26/22 22:59 06:59 14:59 Intake Total 120 / 217.667 Output Total 680 / 1680 150 / 1830 Balance -560 / -1462.333 -150 / -1612.333 Weight last 48 hrs Weight 150 lb Weight 174 lb Physical Exam Const: COMMON NORMALS: no acute distress, patient oriented x3 and alert GENERAL APPEARANCE: cooperative, comfortable, well kempt and well hydrated HENMT: COMMON NORMALS: hearing grossly normal bilaterally and external ears normal FACE & SINUS: normal facial exam EXTERNAL EAR: Yes external ears normal Eye: COMMON NORMALS: EOMs intact bilaterally and no scleral icterus GENERAL EYE: appearance normal, both eyes and all related structures ALIGNMENT: Yes alignment normal Neck/C-Spine: COMMON NORMALS: supple and no JVD GENERAL: Yes normal visual inspection CAROTIDS: Yes normal carotid upstroke Chest: COMMONS NORMALS: normal inspection of the chest and normal palpation of entire chest wall CHEST: Yes Symmetrical chest wall rise and No tenderness Resp: COMMON NORMALS: clear to auscultation bilaterally AUSCULTATION: clear to auscultation bilaterally, no crackles, no rales, no rhonchi and no wheezes Cardio: COMMON NORMALS: no JVD, regular rate, S1 normal heart sound present and S2 normal heart sound present PALPATION: normal PMI RATE: regular rate HEART SOUNDS: S1 normal heart sound present, S2 normal heart sound present, no murmurs and Abnormal heart opening sounds other (irregular) BRUITS: no carotid bruits GI: COMMON NORMALS: Soft to palpation AUSCULTATION: Yes normoactive bowel sounds PALPATION: Yes Soft to palpation, No Tenderness to palpation present (GI), No Guarding due to palpation present (GI) and No Rigid due to palpation Extremity: GENERAL: No cyanosis, No edema and No pallor Neuro: COMMON NORMALS: patient oriented x3 and no focal motor deficits SENSORIUM/ORIENTATION: Yes alert Psych: COMMON NORMALS: Normal thought process present and speech normal APPEARANCE: Yes well kempt SPEECH: Yes normal speech MOOD & AFFECT: Yes euthymic mood THOUGHT PROCESS: Normal thought process present THOUGHT CONTENT: Yes Normal thought content present Data 09/25/22 01:35 09/25/22 01:35 Micro: Microbiology 09/24/22 20:11 Blood Culture - Preliminary Blood NEGATIVE TO DATE 09/24/22 20:08 Blood Culture - Preliminary Blood NEGATIVE TO DATE A&P Assessment and plan (1) CHF exacerbation: Newly diagnosed continue IV lasix -decrease lisinopril to 10 mg and increase coreg. -Plan for stress test tomorrow (2) Atrial flutter: [id number]= 4/9 continue on coreg -started on lovenox (3) Hypertension: BP better controlled. Plan Former Smoker Thank you for allowing me to participate in patient's care. Please feel free to call with questions or concerns. Patient seen today via Telehealth by agreement and consent of patient. Telehealth technology used during the visit include video and audio. Exam was conducted with the help of bedside nurse. Time spent in encounter 20 minutes with >50% time spent face to face. Attestations Medical Necessity Statement*: needs hospital stay for CHF and atrial flutter Coding Level of Care Code Acute Code for Chg Fwd Exam Comprehensive Diagnoses CHF exacerbation I50.9 Atrial flutter I48.92 Hypertension I10
[2022-09-26] MEDS: carvedilol 12.5 mg Tablet PO ×2 (08:39→17:33)
[2022-09-26] MEDS: FUROsemide 10 mg/mL SDV 4mL 40 MG IVP (08:39)
[2022-09-26] MEDS: aspirin 81 mg EC Tablet PO (08:39)
[2022-09-26] MEDS: lisinopril 20 mg Tablet PO (08:39)
[2022-09-26] MEDS: atorvastatin 40 mg Tablet PO (20:46)
[2022-09-27] VITALS (14 sets, daily range): BP systolic 102–124; BP diastolic 55–84; PULSE 69–99; RESP 16–25; TEMP 36.5–36.8; O2SAT 93–97
[2022-09-27] MEDS: enoxaparin 80 mg/0.8 mL Syringe 70 MG SUBCUT ×2 (05:23→16:17)
[2022-09-27] MEDS: LORazepam 2 mg/mL INJ 1 mL 0.5 MG IVP (06:04)
[2022-09-27 06:45] LABS: Basophils # 0.1 10^3/uL (0.0-0.1); Basophils % 0.4 %; Eosinophils # 0.2 10^3/uL (0.0-0.8); Eosinophils % 1.4 %; Hematocrit 40.9 % (42.0-52.0); Hemoglobin 13.4 g/dL (11.7-16.6); Lymphocytes # 2.4 10^3/uL (0.8-4.8); Lymphocytes % 19.9 %; Mean Corpuscular HGB Conc 32.8 g/dL (30.0-36.0); Mean Corpuscular Hemoglobin 28.5 pg (28.0-34.0); Mean Corpuscular Volume 86.8 fl (80-94); Mean Platelet Volume 9.5 fL (7.4-10.4); Monocytes # 0.9 10^3/uL (0.2-0.9); Monocytes % 7.9 %; Neutrophils # 8.23 10^3/uL (1.8-7.7); Neutrophils % 69.6 %; Nucleated Red Blood Cells % 0 %; Platelet Count 337 10^3/cmm (130-400); Red Blood Count 4.71 10^6/uL (4.1-5.3); Red Cell Distribution Width 12.3 % (12.1-15.1); White Blood Count 11.8 10^3/uL (4.0-10.0)
[2022-09-27 06:54] LABS: Anion Gap 13.7 (5-19); Blood Urea Nitrogen 15 mg/dL (8-23); Calcium 8.8 mg/dL (8.5-10.5); Carbon Dioxide 26 mmol/L (22-29); Chloride 96 mmol/L (98-107); Glucose 105 mg/dL (65-115); Osmolality Calculated 275 mOsm/kg (285-295); Potassium 3.7 mmol/L (3.5-5.1); Sodium 132 mmol/L (136-145)
[2022-09-27] MEDS: regadenoson 0.4 Mg/5 ml Syringe IVP (07:38)
[2022-09-27] MEDS: ondansetron 2 mg/ML SDV 2 mL 4 MG IVP (07:48)
--- NOTE | 2022-09-27 08:09 | NMCV_ITS ---
NM nathalia perf SPECT r/s* [id number] Gianni Patel Age: 77 Gender: M : 1945 Exam Date: 09/27/2022 08:09 Ordering Phys: Ashlie Larson MD ([email or web address]) Technologist: RAMANDEEP Gilliam Exam Location: [facility] Indications: CHEST PAIN STRESS TEST Please see separate stress test report in [facility] for full findings IMAGE PROTOCOL Rest/Stress 1 Lexiscan Day Radiopharmaceutical Dose (mCi) Administration Site Administered by Rest: Tc-99m 10.9 IV RAMANDEEP Alvares Sestamibi Stress:Tc-99m 32.8 IV RAMANDEEP Alvares Sestamibi Rest: 27-Sep-2022 60 Discovery 630 Stress: 27-Sep-2022 30 Discovery 630 0.4mg Lexiscan. Images obtained in supine and prone position. SPECT RESULTS Technical Quality: Excellent Raw Data Analysis: Normal Image Corrections: No attenuation or motion correction applied Summed Stress Score: 9 Summed Rest Score: 8 Summed Difference Score: 1 PERFUSION FINDINGS Medium sized perfusion abnormality of basal to mid inferolateral, mid to apical inferior and apical lateral webster with subtle reversibility in apical lateral wall. FUNCTIONAL RESULTS (calculated via Gated SPECT) Stress Image LV EF (%): 28 Stress EDV (mL):198 TID: 0.88 Stress ESV (mL):142 FUNCTIONAL FINDINGS: The left ventricle is normal in size. Transient Ischemia Dilatation of 0.88. The left ventricular ejection fraction is severely reduced with a value of 28%. There is severely decreased wall thickening. IMPRESSIONS 1. Medium sized predominantly fixed perfusion abnormality of basal to mid inferolateral, mid to apical inferior and apical lateral ewbster. 2. This may represent old myocardial infarction in circumflex/ right coronary artery or attenuation artifact. 3. The left ventricular ejection fraction is severely reduced with a value of 28% with global hypokinesis. 4. EKG portion of the study will be reported separately. 5. No significant coronary ischemia based on this study. Ashlie Larson MD (Electronically Signed) Final Date: 27 September 2022 13:22 S
--- NOTE | 2022-09-27 09:09 | PM.PN ---
Subjective Subjective: He feels well and had his stress test this morning Medications: Reviewed: Yes Vitals/I&O/Wt Last Vital Signs Temp 98.3 F 09/27/22 00:00 Pulse 76 09/27/22 07:53 Resp 17 09/27/22 05:15 BP 103/57 09/27/22 07:53 Pulse Ox 95 09/27/22 05:15 O2 Del Method 09/27/22 05:15 09/26/22 09/27/22 09/27/22 22:59 06:59 14:59 Intake Total 680 / 1760 Output Total 1170 / 2370 410 / 2780 Balance -490 / -610 -410 / -1020 Weight last 48 hrs Weight 150 lb Physical Exam Const: COMMON NORMALS: no acute distress, patient oriented x3 and alert GENERAL APPEARANCE: cooperative, comfortable, well kempt and well hydrated HENMT: COMMON NORMALS: hearing grossly normal bilaterally and external ears normal FACE & SINUS: normal facial exam EXTERNAL EAR: Yes external ears normal Eye: COMMON NORMALS: EOMs intact bilaterally and no scleral icterus GENERAL EYE: appearance normal, both eyes and all related structures ALIGNMENT: Yes alignment normal Neck/C-Spine: COMMON NORMALS: supple and no JVD GENERAL: Yes normal visual inspection CAROTIDS: Yes normal carotid upstroke Chest: COMMONS NORMALS: normal inspection of the chest and normal palpation of entire chest wall CHEST: Yes Symmetrical chest wall rise and No tenderness Resp: COMMON NORMALS: clear to auscultation bilaterally AUSCULTATION: clear to auscultation bilaterally, no crackles, no rales, no rhonchi and no wheezes Cardio: COMMON NORMALS: no JVD, regular rate, S1 normal heart sound present and S2 normal heart sound present PALPATION: normal PMI RATE: regular rate HEART SOUNDS: S1 normal heart sound present, S2 normal heart sound present, no murmurs and Abnormal heart opening sounds other (irregular) BRUITS: no carotid bruits GI: COMMON NORMALS: Soft to palpation AUSCULTATION: Yes normoactive bowel sounds PALPATION: Yes Soft to palpation, No Tenderness to palpation present (GI), No Guarding due to palpation present (GI) and No Rigid due to palpation Extremity: GENERAL: No cyanosis, No edema and No pallor Neuro: COMMON NORMALS: patient oriented x3 and no focal motor deficits SENSORIUM/ORIENTATION: Yes alert Psych: COMMON NORMALS: Normal thought process present and speech normal APPEARANCE: Yes well kempt SPEECH: Yes normal speech MOOD & AFFECT: Yes euthymic mood THOUGHT PROCESS: Normal thought process present THOUGHT CONTENT: Yes Normal thought content present Data 09/27/22 05:44 09/27/22 05:44 A&P Assessment and plan (1) CHF exacerbation: Newly diagnosed agree with transitioning to PO lasix -Old [place]/attenuation artifact on stress test. No ischemia. Patient is asymptomatic. continue with medical management -continue with ASA and atorvastatin on discharge. --continue lisinopril 10 mg and coreg. -Possible discharge tomorrow. -f/u with Rosa in 1 week with BMP, Mg, NT Pro-BNP in 1 week. (2) Atrial flutter: [id number]= 4/9 continue on coreg -May transition to DOAC on discharge. (3) Hypertension: BP low normal. Plan Former Smoker Thank you for allowing me to participate in patient's care. Please feel free to call with questions or concerns. Patient seen today via Telehealth by agreement and consent of patient. Telehealth technology used during the visit include video and audio. Exam was conducted with the help of bedside nurse. Time spent in encounter 20 minutes with >50% time spent face to face. Attestations Medical Necessity Statement*: needs hospital stay for med titration Coding Level of Care Code Acute Code for Chg Fwd Diagnoses CHF exacerbation I50.9 Atrial flutter I48.92 Hypertension I10
[2022-09-27] MEDS: aspirin 81 mg EC Tablet PO (10:21)
[2022-09-27] MEDS: FUROsemide 10 mg/mL SDV 4mL 40 MG IVP (10:21)
[2022-09-27] MEDS: carvedilol 12.5 mg Tablet PO ×2 (10:22→17:26)
--- NOTE | 2022-09-27 10:38 | PM.PN ---
Subjective Subjective: Patient is doing fine after cardiac stress test Blood pressure 103/57 No active chest pain or shortness of breath Currently on room air Multiple family members in the room All questions were answered Vitals/I&O/Wt Last Vital Signs Temp 98.3 F 09/27/22 00:00 Pulse 76 09/27/22 07:53 Resp 17 09/27/22 05:15 BP 103/57 09/27/22 07:53 Pulse Ox 95 09/27/22 05:15 O2 Del Method 09/27/22 05:15 09/26/22 09/27/22 09/27/22 22:59 06:59 14:59 Intake Total 680 / 1760 Output Total 1170 / 2370 410 / 2780 Balance -490 / -610 -410 / -1020 Weight last 48 hrs Weight 68.039 kg Physical Exam Narrative: Patient is euvolemic Awake and alert Currently on room air Hemodynamically stable Pleasant and cooperative Interval PERRLA S1, S2 Abdomen soft Data 09/27/22 05:44 09/27/22 05:44 A&P Assessment and plan (1) Atrial flutter: (2) CHF exacerbation: (3) 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): (4) Pericardial effusion: (5) New onset of congestive heart failure: (6) Atrial fibrillation and flutter: (7) Hypertension: Plan New onset CHF Atrial flutter Clinically patient looks euvolemic we will switch to p.o. Lasix instead of IV Excessive snoring, patient has been taking multiple naps in the day, patient stating he lost 10 pounds last few months Might do overnight pulse ox study for sleep study referral outpatient Awaiting cardiac stress test EF 35% LifeVest? As per cardiology Hypertension: Optimize antihypertensive regimen, blood pressure has improved with use of lisinopril Currently on therapeutic Lovenox [id number] 12/12 Attestations Medical Necessity Statement*: Hopefully he will be able to go home in next 24 hours Time Spent in Patient Care: 30 Coding Level of Care Code Acute Code for [facility] Fwd Diagnoses Atrial flutter I48.92 CHF exacerbation I50.9 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) R06.09 Pericardial effusion I31.39 New onset of congestive heart failure I50.9 Atrial fibrillation and flutter I48.91; I48.92 Hypertension I10
--- NOTE | 2022-09-27 12:05 | PC.CHAP ---
Pastoral Care Encounter/Spiritual Assessment Type of Contact [] Declined hospital aide visit [] Patient/Family/Request visit [] Outpatient visit [] Follow-up visit [] Physician referral [] Code/Alert [c\x] Routine visit [] Staff referral [] Actively dying [] Patient sleeping [] Family support [] [] Out of room [] Palliative care [] [] Receiving care in room [] Pre-surgical visit [] Trauma [] Long length of stay [] ICU visit [] Other: Relational/Emotional Strength [x] Patient feels connected with others/family/visitors/staff [] Distress [] Loneliness/isolation [] Abandonment Spirituality of Patient [x] Person of Kenyatta [] Attends Restorationism of their Kenyatta [x] Believes in Prayer [] Reads Bible or Hoahaoism materials [] There are Spiritual issues to be addressed Newspaper Publisher Interventions [x] Prayer [x] Active listening [] Non-anxious presence [] Spiritual/emotional support [] Crisis/trauma care [] Spiritual counseling [] Bereavement support [] Provided bereavement packet [] Provided Bible/devotional materials [] Provided toy/stuffed animal, coloring book to patient or family member [] Provided Communion [] Anointing/[place] [] Salvation [x Impact on Illness or Injury [] Angry [] Fearful [] Anxious [] Often cries [] Exhaustion [] Unable to work [] Unable to attend christian [] Unable to walk/stand [] Unable to read [] Unable to drive [] Unable to eat/drink [] Unable to sleep [] Unable to be with family [] Patient intubated [] Other: Summary Time spent with patient 5 min
[2022-09-27] MEDS: atorvastatin 40 mg Tablet PO (20:42)
[2022-09-28] VITALS (16 sets, daily range): BP systolic 107–135; BP diastolic 69–93; PULSE 70–105; RESP 18–27; TEMP 36.7; O2SAT 91–95
[2022-09-28 04:29] LABS: Erythrocyte Sedimentation Rate 12 mm/hr (0-10)
[2022-09-28] MEDS: enoxaparin 80 mg/0.8 mL Syringe 70 MG SUBCUT (04:50)
[2022-09-28 04:59] LABS: Anion Gap 13.1 (5-19); Blood Urea Nitrogen 18 mg/dL (8-23); C Reactive Protein 43.6 mg/L (0.0-4.9); Calcium 8.7 mg/dL (8.5-10.5); Carbon Dioxide 27 mmol/L (22-29); Chloride 98 mmol/L (98-107); Glucose 104 mg/dL (65-115); Osmolality Calculated 280 mOsm/kg (285-295); Potassium 4.1 mmol/L (3.5-5.1); Sodium 134 mmol/L (136-145)
--- NOTE | 2022-09-28 08:30 | PC.SOCIAL ---
IMM Update pg 2 of IMM updated and reviewed w/ patient. Copy provided and copy dated, initialed and placed in chart.
[2022-09-28] MEDS: carvedilol 12.5 mg Tablet PO (09:31)
[2022-09-28] MEDS: FUROsemide 40 mg Tablet PO (09:31)
[2022-09-28] MEDS: aspirin 81 mg EC Tablet PO (09:31)
[2022-09-28] MEDS: lisinopril 10 mg Tablet PO (09:31)
--- NOTE | 2022-09-28 10:20 | PM.DCS ---
Discharge Providers Date of Admission: 09/25/22 00:00 Date of Discharge: September 28, 2022 Attending Provider at Admission: Angela Peters MD Attending Provider at Discharge: Lizzie Mast MD Diagnoses at Discharge Discharge Diagnosis (1) CHF exacerbation: Status: Acute (2) Atrial flutter: Status: Acute (3) Hypertension: Status: Acute (4) Atrial fibrillation and flutter: Status: Acute (5) New onset of congestive heart failure: Status: Acute (6) Pericardial effusion: Status: Acute (7) 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): Status: Acute Reason for Visit Reason for Visit: SOB, congestion Hospital Course Hospital Course 77-year-old male who was admitted for management and evaluation of symptoms related to new onset CHF, A. fib RVR. Patient was diuresed which improved his dyspnea, cardiology was consulted for EF of 35%, stress test showed fixed defect without any signs of reversible ischemia, Dr. 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 Larson outpatient. He was diagnosed with nocturnal hypoxemia for possible sleep apnea, sleep study referral has been given at the time of discharge. He remained hypertensive as well and responded very well to lisinopril. Physical Exam Narrative: Euvolemic On room air Awake and alert Pleasant and cooperative Discharge Data Studies Completed and Pending Completed Studies During Hospitalization Category Date Time Status CT angio chest PE protcl [id number] Urgent Cat Scan 09/24/22 15:25 Completed Sestamibi Stress Test Request Routine Exams 09/26/22 08:09 Draft XR chest 1V portable [id number] Stat Exams 09/24/22 14:34 Completed NM nathalia perf SPECT r/s* [id number] Routine Nuc Med 09/27/22 08:09 Completed CV. echo complete* [id number] Stat Ultrasound 09/25/22 06:00 Completed US venous duplex lower extremity bilat [CV venous Ultrasound 09/24/22 18:26 [place] [id number]] Urgent Pending at discharge Category Date Time Status Blood Culture Routine Lab 09/24/22 20:11 Results Radiology Impressions Chest X-Ray 09/24/22 14:34 IMPRESSION: 1. Enlarged cardiac silhouette. Cardiac silhouette has significantly increased in size since 2017. 2. Bilateral pleural effusions with consolidations at the lung bases. Effusions are small. More dense consolidation at the LEFT lung base which may be underlying atelectasis or pneumonia. Chest CTA 09/24/22 15:25 IMPRESSION: 1. No pulmonary embolism. Limited opacification LEFT lower lobe pulmonary arteries. 2. Small LEFT pleural effusion with LEFT partial LEFT lower lobe atelectasis. 3. Enlarged heart with circumferential pericardial effusion. Heart was near normal size on 10/13/2016 Venous Duplex 09/24/22 18:26 IMPRESSION: No evidence of deep vein thrombosis. Laboratory Results WBC 11.8 10^3/uL (4.0-10.0) H 09/27/22 05:44 RBC 4.71 10^6/uL (4.1-5.3) 09/27/22 05:44 Hgb 13.4 g/dL (11.7-16.6) 09/27/22 05:44 Hct 40.9 % (42.0-52.0) L 09/27/22 05:44 MCV 86.8 fl (80-94) 09/27/22 05:44 MCH 28.5 pg (28.0-34.0) 09/27/22 05:44 MCHC 32.8 g/dL (30.0-36.0) 09/27/22 05:44 RDW 12.3 % (12.1-15.1) 09/27/22 05:44 Plt Count 337 10^3/cmm (130-400) 09/27/22 05:44 MPV 9.5 fL (7.4-10.4) 09/27/22 05:44 Neut % (Auto) 69.6 % 09/27/22 05:44 Lymph % (Auto) 19.9 % 09/27/22 05:44 Amelia % (Auto) 7.9 % 09/27/22 05:44 Eos % (Auto) 1.4 % 09/27/22 05:44 Baso % (Auto) 0.4 % 09/27/22 05:44 Neut # (Auto) 8.23 10^3/uL (1.8-7.7) H 09/27/22 05:44 Lymph # (Auto) 2.4 10^3/uL (0.8-4.8) 09/27/22 05:44 Amelia # (Auto) 0.9 10^3/uL (0.2-0.9) 09/27/22 05:44 Eos # (Auto) 0.2 10^3/uL (0.0-0.8) 09/27/22 05:44 Baso # (Auto) 0.1 10^3/uL (0.0-0.1) 09/27/22 05:44 Nucleated RBC % (auto) 0 % 09/27/22 05:44 Nucleated RBCs # 0.0 /100WBC 09/27/22 05:44 ESR 12 mm/hr (0-10) H 09/28/22 04:05 PT 14.90 SECONDS (12.1-14.9) 09/25/22 01:35 INR 1.13 (0.8-1.2) 09/25/22 01:35 D-Dimer 2.58 ug/mIFEU (0-0.59) H 09/24/22 14:46 Sodium 134 mmol/L (136-145) L 09/28/22 04:05 Potassium 4.1 mmol/L (3.5-5.1) 09/28/22 04:05 Chloride 98 mmol/L (98-107) 09/28/22 04:05 Carbon Dioxide 27 mmol/L (22-29) 09/28/22 04:05 Anion Gap 13.1 (5-19) 09/28/22 04:05 BUN 18 mg/dL (8-23) 09/28/22 04:05 Creatinine 1.0 mg/dL (0.7-1.2) 09/28/22 04:05 GFR Calculation Not Reportable 09/28/22 04:05 Glucose 104 mg/dL (65-115) 09/28/22 04:05 Estimat Average Glucose 128 09/24/22 14:46 Hemoglobin A1c 6.1 % (4.0-6.0) H 09/24/22 14:46 Calculated Osmolality 280 mOsm/kg (285-295) L 09/28/22 04:05 Lactic Acid 1.1 mmol/L (0.5-2.2) 09/24/22 20:08 Calcium 8.7 mg/dL (8.5-10.5) 09/28/22 04:05 Magnesium 2.0 mg/dL (1.7-2.3) 09/27/22 05:44 Total Bilirubin 0.5 mg/dL (0.15-1.2) 09/24/22 14:46 AST 14 U/L (0-40) 09/24/22 14:46 ALT 19 U/L (0-41) 09/24/22 14:46 Alkaline Phosphatase 118 U/L (40-130) 09/24/22 14:46 Troponin T Baseline 33 ng/L (0-15) H 09/24/22 14:46 Troponin T 120 Minute 30.72 ng/L (0-15) H 09/24/22 16:24 Delta Troponin T -2.28 ABS# (0-10) L 09/24/22 16:24 Troponin T Hi Sens 6Hr 48.21 ng/L (0-15) H 09/24/22 20:08 Troponin T Hi Sens 6Hr Delta 15.21 ng/L (0-12) H* 09/24/22 20:08 C-Reactive Protein 43.6 mg/L (0.0-4.9) H 09/28/22 04:05 NT-Pro-B Natriuret Pep 6431 pg/mL (0-450) H 09/24/22 14:46 Total Protein 7.3 g/dL (6.6-8.7) 09/24/22 14:46 Albumin 3.7 g/dL (3.5-5.2) 09/24/22 14:46 Globulin 3.6 g/dL (1.3-4.6) 09/24/22 14:46 Triglycerides 60 mg/dL (0-150) 09/24/22 20:08 Cholesterol 152 mg/dL (0-200) 09/24/22 20:08 LDL Cholesterol, Calc 111 mg/dL (50-129) 09/24/22 20:08 HDL Cholesterol 29 mg/dL (60-100) L 09/24/22 20:08 LDL/HDL Ratio 3.83 RATIO (0.00-3.22) H 09/24/22 20:08 Cholesterol/HDL Ratio 5.24 mg/dL (1.0-5.00) H 09/24/22 20:08 Lipase 11 U/L (13-60) L 09/24/22 14:46 Procalcitonin 0.06 ng/mL (0-0.5) 09/24/22 20:08 TSH 0.95 uIU/mL (0.27-4.20) 09/24/22 20:08 Urine Color Colorless (Yellow) 09/24/22 19:34 Urine Appearance Clear (CLEAR) 09/24/22 19:34 Urine pH 6 (5-7) 09/24/22 19:34 Ur Specific Whitman 1.010 (1.005-1.030) 09/24/22 19:34 Urine Protein Neg (Negative) 09/24/22 19:34 Urine Glucose (UA) Norm (Normal) 09/24/22 19:34 Urine Ketones Negative (Negative) 09/24/22 19:34 Urine Blood Neg (Negative) 09/24/22 19:34 Urine Nitrate Negative (Negative) 09/24/22 19:34 Urine Bilirubin Neg (Negative) 09/24/22 19:34 Urine Urobilinogen Neg mg/dL (Negative) 09/24/22 19:34 Ur Leukocyte Esterase Negative (Negative) 09/24/22 19:34 Coronavirus 229E (PCR) Not detected (NOT DETECT) 09/24/22 19:34 Influenza Type A Ag negative (Negative) 09/24/22 19:34 Influenza Type B Ag negative (Negative) 09/24/22 19:34 SARS-CoV-2 (PCR) Not detected (NOT DETECT) 09/24/22 19:34 Vitals Last Vital Signs Temp 98.1 F 09/28/22 07:24 Pulse 94 09/28/22 10:06 Resp 18 09/28/22 10:06 BP 135/93 09/28/22 10:06 Pulse Ox 95 09/28/22 10:06 O2 Del Method 09/28/22 08:00 Discharge Plan Discharge Patient Disposition: Home Condition: Stable Prescriptions: New atorvastatin 40 mg Tablet 40 mg PO BEDTIME Qty: 60 2RF aspirin 81 mg Tablet,Delayed Release (Dr/Ec) 81 mg PO DAILY Qty: 60 2RF lisinopril 10 mg Tablet 10 mg PO DAILY Qty: 60 3RF Eliquis 5 mg tablet 5 mg PO BID Qty: 120 5RF Toprol XL 50 mg tablet extended release 24 hr 50 mg PO DAILY Qty: 60 2RF magnesium 200 mg tablet 200 mg PO DAILY Qty: 60 0RF furosemide 40 mg tablet 40 mg PO DAILY Qty: 30 4RF potassium chloride 10 mEq capsule, extended release 10 meq PO DAILY Qty: 30 4RF Discontinued aspirin 325 mg Tablet 325 mg PO DAILY Discharge Orders: Discharge Order (Routine); Ordered 09/28/22 Ordered By: Lizzie Mast Other Ambulatory Orders: Sleep Study/Titration (Routine) Timeframe: 3 Days Facility: [facility] - Location: [facility] Ordered By: Lizzie Mast Referrals: Isaac Arreola MD [Physician] - 10/06/22 10:00 am (Patient would like to establish care w/ Dr. Arreola, if Dr. Arreola is unavailable patient is willing to establish care w/ another physician @ [facility].) Ashlie Larson MD [Physician] - 10/13/22 11:15 am (Your follow up appointment will be with Dr. Lima on 10-13-22 at 11:15 a.m. ) Discharge Diet: Cardiac Discharge Activity: Increase activity as tolerated Patient Instructions: Metoprolol (By mouth) (Lopressor, Toprol XL), Lisinopril (By mouth) (Prinivil, Zestril), Furosemide (By mouth) (Lasix), Potassium Chloride (By mouth) (K-Dur, K-Lisa, K-Tab, Julio Mur), Aspirin (By mouth) (Helder Extra Strength, Helder Aspirin Children's,..., Atorvastatin (By mouth) (Lipitor), Magnesium (By mouth) (CalMag Thins, Coral Calcium, GNC..., Apixaban (By mouth) (Eliquis), Opioid Safety Activity Restrictions/Additional Instructions: Numbers to look for Ideally blood pressure pressures should stay between 120s to 130 mmHg If your blood pressure is below 90 mmhg please do not take lisinopril that day Ideally heart rate number should stay between 70-80 at rest and less than 110 on exertion Below 60 is considered low heart rate do not take metoprolol succinate if your heart rate is below 60 If your heart rate is around 140 that day you can double up your metoprolol dose to make it 100 mg If that is not bring your heart rate down below 110 you will need to come back to the ER If you notice any weight gain or worsening of swelling of legs you can take Lasix whenever you take Lasix take potassium with it Only take potassium when you are taking Lasix otherwise do not take it individually on daily basis You will need sleep study to see how much oxygen we will require overnight You will need echo within 90 days If you have any questions feel free to call cardiology clinic/[facility] Discharge Attestations Time Spent in Discharge Care*: less than 30 min Quality Metrics Clinical Quality Measures [ No reported AMI, CVA or VTE this stay] Coding Level of Care Code Acute [facility] note Diagnoses CHF exacerbation I50.9 Atrial flutter I48.92 Hypertension I10 Atrial fibrillation and flutter I48.91; I48.92 New onset of congestive heart failure I50.9 Pericardial effusion I31.39 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) R06.09
--- NOTE | 2022-09-28 10:30 | PM.PN ---
Subjective Subjective: He is feeling much better. No CP, SOB Medications: Reviewed: Yes Vitals/I&O/Wt Last Vital Signs Temp 98.1 F 09/28/22 07:24 Pulse 94 09/28/22 10:06 Resp 18 09/28/22 10:06 BP 135/93 09/28/22 10:06 Pulse Ox 95 09/28/22 10:06 O2 Del Method 09/28/22 08:00 09/27/22 09/28/22 09/28/22 22:59 06:59 14:59 Intake Total 240 / 360 480 / 480 Output Total 800 / 800 1200 / 2000 200 / 200 Balance -560 / -440 -1200 / -1640 280 / 280 Physical Exam Const: COMMON NORMALS: no acute distress, patient oriented x3 and alert GENERAL APPEARANCE: cooperative, comfortable, well kempt and well hydrated HENMT: COMMON NORMALS: hearing grossly normal bilaterally and external ears normal FACE & SINUS: normal facial exam EXTERNAL EAR: Yes external ears normal Eye: COMMON NORMALS: EOMs intact bilaterally and no scleral icterus GENERAL EYE: appearance normal, both eyes and all related structures ALIGNMENT: Yes alignment normal Neck/C-Spine: COMMON NORMALS: supple and no JVD GENERAL: Yes normal visual inspection CAROTIDS: Yes normal carotid upstroke Chest: COMMONS NORMALS: normal inspection of the chest and normal palpation of entire chest wall CHEST: Yes Symmetrical chest wall rise and No tenderness Resp: COMMON NORMALS: clear to auscultation bilaterally AUSCULTATION: clear to auscultation bilaterally, no crackles, no rales, no rhonchi and no wheezes Cardio: COMMON NORMALS: no JVD, regular rate, S1 normal heart sound present and S2 normal heart sound present PALPATION: normal PMI RATE: regular rate HEART SOUNDS: S1 normal heart sound present, S2 normal heart sound present, no murmurs and Abnormal heart opening sounds other (irregular) BRUITS: no carotid bruits GI: COMMON NORMALS: Soft to palpation AUSCULTATION: Yes normoactive bowel sounds PALPATION: Yes Soft to palpation, No Tenderness to palpation present (GI), No Guarding due to palpation present (GI) and No Rigid due to palpation Extremity: GENERAL: No cyanosis, No edema and No pallor Neuro: COMMON NORMALS: patient oriented x3 and no focal motor deficits SENSORIUM/ORIENTATION: Yes alert Psych: COMMON NORMALS: Normal thought process present and speech normal APPEARANCE: Yes well kempt SPEECH: Yes normal speech MOOD & AFFECT: Yes euthymic mood THOUGHT PROCESS: Normal thought process present THOUGHT CONTENT: Yes Normal thought content present Data 09/27/22 05:44 09/28/22 04:05 A&P Assessment and plan (1) CHF exacerbation: Newly diagnosed (HFrEF; LVEF=35% on echo) -Old [place]/attenuation artifact on stress test. No significant ischemia. Patient has no CP. continue with medical management -continue with ASA and atorvastatin on discharge. --continue lisinopril 10 mg and coreg. No arrhythmias other than atrial fluttr on telemetry. Rate fairly well controlled. -Discharge today on lasix 40 mg and potassium 10 meq. -f/u with Rosa in 1 week with BMP, Mg, NT Pro-BNP in 1 week. (2) Atrial flutter: [id number]= 4/9 continue on coreg and Eliquis 5 mg PO BID on discharge. (3) Hypertension: BP low normal. Plan Former Smoker Thank you for allowing me to participate in patient's care. Please feel free to call with questions or concerns. Patient seen today via Telehealth by agreement and consent of patient. Telehealth technology used during the visit include video and audio. Exam was conducted with the help of bedside nurse. Time spent in encounter 20 minutes with >50% time spent face to face. Attestations Medical Necessity Statement*: stable yo be discharged home today Coding Level of Care Code Acute Code for Chg Fwd Exam Comprehensive Diagnoses CHF exacerbation I50.9 Atrial flutter I48.92 Hypertension I10
[2022-09-28 10:55] LABS: NT Pro B Type Natriuretic Pept 1410 pg/mL (0-450)
--- NOTE | 2022-09-28 12:50 | PC.NURSE ---
Pt discharged home. Pt's IV taken out. No redness or swelling or excess bleeding noted. Pt tolerated well. Pts discharge instructions given along with prescriptions and follow up appointments. Pt had no c/o pain or discomfort at the time of discharge. Pt taken out via wheelchair accompanied by family and staff.
== END 2022-09-28 11:50 | disposition home or self-care (01) | DRG 291 ==
LOC: ER 20:46 → ER IP 09-25 05:58 → CSU 09-25 15:01
PROVIDERS: Internal Medicine Cardiovascular Disease; Admitting Provider Internal Medicine; Emergency Provider Emergency Medicine; Visit Provider Internal Medicine
DX: I11.0 Hypertensive heart disease with heart failure (principal); I50.21 Acute systolic (congestive) heart failure; I31.39 Other pericardial effusion (noninflammatory); I48.92 Unspecified atrial flutter; J98.11 Atelectasis; I48.91 Unspecified atrial fibrillation; I25.10 Atherosclerotic heart disease of native coronary artery without angina pectoris; I45.10 Unspecified right bundle-branch block; G47.36 Sleep related hypoventilation in conditions classified elsewhere; I25.2 Old myocardial infarction; Z87.891 Personal history of nicotine dependence
CPT/HCPCS: 36415; 71045; 71275; 78452; 80048; 80053; 80061; 81003; 83036; 83605; 83690; 83735; 83880; 84145; 84443; 84484; 85025; 85378; 85610; 85651; 86140; 87040; 87635; 87804; 93005; 93017; 93306; 93970; 94664; 94762; 96365; 96366; 96372; 96374; 96375; 97161; 99291; A9500; J1650; J1940; J2060; J2405; J2785; J3490; Q9967

== ENCOUNTER → 2022-10-13 11:11 | Outpatient (BNVA) | payer OTHER, MEDICARE, SELFPAY | PROVIDERS: PCP Family Medicine Adult Medicine; Visit Provider Internal Medicine Cardiovascular Disease | DX: I11.0 Hypertensive heart disease with heart failure (principal); I50.9 Heart failure, unspecified; I48.91 Unspecified atrial fibrillation; I48.92 Unspecified atrial flutter; Z79.01 Long term (current) use of anticoagulants; J90 Pleural effusion, not elsewhere classified; I31.39 Other pericardial effusion (noninflammatory); Z87.891 Personal history of nicotine dependence | CPT/HCPCS: 99214 ==

== ENCOUNTER → 2022-12-23 08:56 | Outpatient (BNVA) | payer MEDICARE, SELFPAY | PROVIDERS: PCP Family Medicine Adult Medicine; Visit Provider Nurse Practitioner Family | DX: I11.0 Hypertensive heart disease with heart failure (principal); I50.9 Heart failure, unspecified; I48.91 Unspecified atrial fibrillation; I48.92 Unspecified atrial flutter; Z79.01 Long term (current) use of anticoagulants; Z79.82 Long term (current) use of aspirin | CPT/HCPCS: 99214 ==

== ENCOUNTER 2023-01-11 10:07 | Outpatient (CLI) | payer MEDICARE, SELFPAY ==
[2023-01-11 11:28] LABS: Blood Urea Nitrogen 17 mg/dL (8-23); Calcium 8.8 mg/dL (8.5-10.5); Carbon Dioxide 28 mmol/L (22-29); Chloride 102 mmol/L (98-107); Glucose 91 mg/dL (65-115); NT Pro B Type Natriuretic Pept 1048 pg/mL (0-450); Osmolality Calculated 289 mOsm/kg (285-295); Sodium 139 mmol/L (136-145)
== END 2023-01-11 10:08 | disposition home or self-care (01) ==
PROVIDERS: PCP Family Medicine Adult Medicine; Visit Provider Nurse Practitioner Family
DX: I50.9 Heart failure, unspecified (principal)
CPT/HCPCS: 36415; 80048; 83880

== ENCOUNTER → 2023-02-09 13:40 | Outpatient (BNVA) | payer OTHER, SELFPAY | PROVIDERS: PCP Family Medicine Adult Medicine; Visit Provider Internal Medicine Cardiovascular Disease | DX: I48.91 Unspecified atrial fibrillation (principal); I48.92 Unspecified atrial flutter; I11.0 Hypertensive heart disease with heart failure; I50.9 Heart failure, unspecified; I25.10 Atherosclerotic heart disease of native coronary artery without angina pectoris; K21.9 Gastro-esophageal reflux disease without esophagitis; Z79.01 Long term (current) use of anticoagulants; Z79.82 Long term (current) use of aspirin | CPT/HCPCS: 99214 ==

== ENCOUNTER → 2023-04-05 14:38 | Outpatient (BNVA) | payer OTHER, SELFPAY | PROVIDERS: PCP Family Medicine Adult Medicine; Visit Provider Nurse Practitioner Family | DX: I11.0 Hypertensive heart disease with heart failure (principal); I50.9 Heart failure, unspecified; I25.10 Atherosclerotic heart disease of native coronary artery without angina pectoris | CPT/HCPCS: 36415; 80048; 83880; 99214 ==

== ENCOUNTER → 2023-08-17 14:47 | Outpatient (BNVA) | payer OTHER, SELFPAY | PROVIDERS: Visit Provider Internal Medicine Cardiovascular Disease | DX: I11.0 Hypertensive heart disease with heart failure (principal); I50.9 Heart failure, unspecified; I48.91 Unspecified atrial fibrillation; I48.92 Unspecified atrial flutter; I25.10 Atherosclerotic heart disease of native coronary artery without angina pectoris; K21.9 Gastro-esophageal reflux disease without esophagitis | CPT/HCPCS: 99214 ==

== ENCOUNTER → 2024-02-28 08:56 | Outpatient (BNVA) | payer OTHER, SELFPAY | PROVIDERS: Visit Provider Nurse Practitioner Family | DX: I11.0 Hypertensive heart disease with heart failure (principal); I50.22 Chronic systolic (congestive) heart failure; I48.91 Unspecified atrial fibrillation; I48.92 Unspecified atrial flutter; Z79.01 Long term (current) use of anticoagulants; Z79.82 Long term (current) use of aspirin | CPT/HCPCS: 99214 ==

== ENCOUNTER 2024-03-13 10:52 | Outpatient (CLI) | payer OTHER, SELFPAY ==
--- NOTE | 2024-03-13 11:15 | USCV_ITS ---
Gianni Patel Age: 78 Gender: M : 1945 Exam Date: 03/13/2024 11:01 Ordering Phys: Rosa Cummings Technologist: SARAH [place] [facility] [place] b[place] Risk Factors: Previous Vascular Surgery: Right Brachial BP: / Left Brachial BP: / Right Left Velocity (cm/s) Spectral Plaque Velocity (cm/s) Spectral Plaque Syst/Diast Broadening Syst/Diast Broadening 88.00/ 25.80 Prox CCA 83.20 / 15.80 141.40/30.30 Mid CCA 83.80 / 19.90 108.70/28.10 Distal CCA 60.00 / 13.00 87.00/ 26.50 Prox ICA 239.90/ 128.50 124.00/43.30 Mid ICA 525.50/ 273.50 113.90/43.30 Distal ICA 62.70 / 14.40 188.50 ECA 180.20 1.10 ICA/CCA 8.80 Antegrade Vertebral Antegrade 69.40/ 9.60 cm/s 59.80/ 22.60 cm/s Tri Subclavian Tri 92.50 177.1 0 CONCLUSIONS Right ICA stenosis <50%. Moderate calcified plaque Left ICA stenosis 70-99%. Markedly elevated velocities MID ICA. Recommend further evaluation with CTA. High grade stenosis LEFT MID ICA. Severe calcified plaque Intimal thickening in the common carotid arteries and internal carotid arteries bilaterally. Scattered plaque in both CCA. Normal antegrade Doppler flow noted in the right vertebral artery. Normal antegrade Doppler flow noted in the left vertebral artery. Billy Gomez MD (Electronically Signed) Final Date: 13 March 2024 17:47 S
== END 2024-03-13 10:53 | disposition home or self-care (01) ==
LOC: RAD 10:53
PROVIDERS: Visit Provider Nurse Practitioner Family
DX: R09.89 Other specified symptoms and signs involving the circulatory and respiratory systems (principal); I65.23 Occlusion and stenosis of bilateral carotid arteries
CPT/HCPCS: 93880

== ENCOUNTER 2024-03-26 09:39 | Outpatient (CLI) | payer OTHER, SELFPAY ==
--- NOTE | 2024-03-26 10:00 | CT_ITS ---
WS: [id number] CTA HEAD AND NECK TECHNIQUE: Contrast enhanced CTA of the head and neck with coronal and sagittal reformatted images an d maximum intensity projection (MIP) images. NASCET criteria utilized. CLINICAL INFORMATION: carotid duplex left ICA stenosis- high grade COMPARISON: Ultrasound 03/13/2024 DLP: 1249.[address] scans at [facility] use at least one of these dose optimization techniques: automated e xposure control; mA and/or kV adjustment per patient size (includes targeted exams where dose is matc hed to clinical indication); or iterative reconstruction. FINDINGS: RIGHT: RIGHT common carotid artery is patent. Calcified atheromatous plaque RIGHT carotid bulb extend ing into the ICA. RIGHT ICA stenosis measures 53%. RIGHT ICA is patent to the skull base. LEFT: LEFT common carotid artery is patent. Moderate calcified atheromatous plaque LEFT carotid bulb extending to the ICA. LEFT ICA stenosis measures 80% 1.5 cm distal to the bifurcation. Area of steno sis extends over approximately 1.0 cm with tiny residual ICA lumen. LEFT ICA reduced in caliber but p atent to the skull base. LEFT dominant vertebral artery. Mild stenosis at the origin of the LEFT vertebral artery. Smaller but patent RIGHT vertebral artery which partially ends in PICA. INTRACRANIAL CTA: Dominant distal LEFT vertebral artery. Basilar artery is patent. Mild stenosis in the proximal basila r artery which remains patent. Persistent RIGHT [employer]. Normal vascularity to the [employer] territory bi laterally. Both ICAs are patent at the skull base. Moderate calcified cavernous carotid atheromatous disease. No rmal vascularity to the IRA and MCA territories bilaterally. No evidence of flow-limiting stenosis or aneurysm. Hypoplastic RIGHT A1 segment. Multinodular thyroid. Straightening of the normal cervical lordosis with moderate spondylitic changes . Disc osteophyte complex worse C3-4 with mild central canal stenosis. CT/CT angio headneck* [id number] IMPRESSION: 1. RIGHT ICA stenosis measures 53% 2. LEFT ICA stenosis measures 80% with reduced caliber LEFT ICA patent to the skull base. Stenosis approximate 1.5 cm distal to the bifurcation. 3. LEFT dominant vertebral artery. Smaller but patent RIGHT vertebral artery w hich partially ends in PICA. 4. No flow-limiting intracranial stenosis. 5. Persistent RIGHT [employer]. 6. Hypoplastic RIGHT A1 segment.
[2024-03-26 10:39] LABS: Blood Urea Nitrogen 26 mg/dL (8-23)
[2024-03-26] MEDS: iohexol 350 mg/mL 500 mL Btl (per mL) IV (10:55)
== END 2024-03-26 09:40 | disposition home or self-care (01) ==
LOC: RAD 09:40
PROVIDERS: Visit Provider Nurse Practitioner Family
DX: I65.23 Occlusion and stenosis of bilateral carotid arteries (principal); I65.02 Occlusion and stenosis of left vertebral artery; E04.2 Nontoxic multinodular goiter; M25.78 Osteophyte, vertebrae; M48.02 Spinal stenosis, cervical region
CPT/HCPCS: 70496; 70498; 82565; 84520; Q9967

== ENCOUNTER 2024-07-08 11:44 | Observation (INO) | payer OTHER, MEDICARE, SELFPAY ==
[2024-07-08] VITALS (15 sets, daily range): BP systolic 90–153; BP diastolic 38–76; PULSE 67–97; RESP 13–21; TEMP 36.7–38.6; O2SAT 92–97; BMI 27.0
--- NOTE | 2024-07-08 11:59 | CTR_ITS ---
PROCEDURE INFORMATION: Exam: CT Abdomen And Pelvis Without Contrast Exam date and time: 07/08/2024 1:20 PM Age: 79 years old Clinical indication: Abdominal pain; Localized; Right lower quadrant (rlq); Additional info: Rlq pain TECHNIQUE: Imaging protocol: Computed tomography of the abdomen and pelvis without contrast. Radiation optimization: All CT scans at this facility use at least one of these dose optimization techniques: automated exposure control; mA and/or kV adjustment per patient size (includes targeted exams where dose is matched to clinical indication); or iterative reconstruction. COMPARISON: CT angio chest PE protcl [id number] 09/24/2022 3:38 PM RADIATION DOSE METRICS: Total DLP (mGy-cm): 698.26 FINDINGS: Lungs: Lung bases are clear. No pleural effusion. Pleural spaces: Calcified pleural scarring involves the right base. Liver: Normal. No mass. Gallbladder and biliary ducts: Normal. No calcified stones. No ductal dilation. Pancreas: Normal. No ductal dilation. Spleen: Normal. No splenomegaly. Adrenal glands: Normal. No mass. Kidneys and ureters: Normal. No hydronephrosis. Stomach and bowel: Unremarkable. No obstruction. No mucosal thickening. Appendix: The appendix is severely inflamed and dilated and contains air as well as multiple appendicolith. The appendix measures 13 mm in diameter and there is surrounding mesenteric inflammation. No sosa abscess is noted. Intraperitoneal space: See Appendix finding. Vasculature: Unremarkable. No abdominal aortic aneurysm. Lymph nodes: Unremarkable. No enlarged lymph nodes. Urinary bladder: Unremarkable as visualized. Reproductive: The prostate gland is abnormally enlarged. Bones/joints: Unremarkable. No acute fracture. Soft tissues: There is a small umbilical hernia containing mesenteric fat. CT/CT abdomen pelvis wo con [id number] IMPRESSION: 1. Acute appendicitis without abscess 2. Prostate enlargement 3. Small umbilical hernia
[2024-07-08 12:22] LABS: Basophils # 0.1 10^3/uL (0.0-0.1); Basophils % 0.3 %; Eosinophils % 0.1 %; Hematocrit 38.3 % (37-53); Lymphocytes # 1.7 10^3/uL (0.8-4.8); Lymphocytes % 8.6 %; Mean Corpuscular HGB Conc 32.6 g/dL (30-55); Mean Corpuscular Hemoglobin 29.8 pg (27-33); Mean Corpuscular Volume 91.2 fl (82-101); Mean Platelet Volume 10.3 fL (7.4-10.4); Monocytes # 1.1 10^3/uL (0.2-0.9); Monocytes % 5.8 %; Neutrophils # 16.43 10^3/uL (1.8-7.7); Neutrophils % 84.6 %; Nucleated Red Blood Cells % 0 %; Platelet Count 232 10^3/cmm (157-399); Red Cell Distribution Width 13.2 % (12.1-15.1); White Blood Count 19.39 10^3/uL (3.29-11.43)
[2024-07-08 12:38] LABS: Alanine Aminotransferase 13 U/L (0-41); Albumin Level 4.3 g/dL (3.5-5.2); Alkaline Phosphatase 120 U/L (40-130); Anion Gap 16.4 (5-19); Aspartate Amino Transferase 14 U/L (0-40); Blood Urea Nitrogen 25 mg/dL (8-23); Calcium 8.6 mg/dL (8.5-10.5); Carbon Dioxide 24 mmol/L (22-29); Chloride 104 mmol/L (98-107); Creatinine Clr Calc Pharmacy 44.3797; Glucose 147 mg/dL (65-115); Lipase 12 U/L (13-60); Osmolality Calculated 297 mOsm/kg (285-295); Potassium 4.4 mmol/L (3.5-5.1); Sodium 140 mmol/L (136-145); Total Bilirubin 0.7 mg/dL (0.15-1.2); Total Protein 7.3 g/dL (6.6-8.7)
--- NOTE | 2024-07-08 12:44 | PC.PHAR ---
Pt is [facility] today but spouse has current med list including 2 new medications, which are Plavix 75mg daily and Lisinopril 10 mg daily as needed for blood pressure.
[2024-07-08] MEDS: sodium chloride 0.9% 1,000 ML 999 ML IV (12:53)
[2024-07-08 13:03] LABS: Bilirubin Urine Negative (Negative); Blood Urine Negative (Negative); Glucose Urine UA Negative (Normal); Ketones Urine Negative (Negative); Leukocyte Esterase Urine Negative (Negative); Nitrate Urine Negative (Negative); Protein Urine Negative (Negative); Specific Gravity, Urine 1.016 (1.005-1.030); Urine Appearance Clear (CLEAR); Urine Color Yellow (Yellow); Urobilinogen Urine 0.2 mg/dL (Negative); pH Urine 7.5 (5-7)
[2024-07-08 13:06] LABS: Add Urine Microscopic? YES; Bacteria Urine None Seen /hpf; Hyaline Casts Urine 1.21 /lpf; RBC Urine 0-2 /hpf (0-2); Squamous Epithelial Cell Urine 0-5 /hpf (0-5); WBC Urine 0-5 /hpf (0-5)
[2024-07-08 13:16] LABS: Add Urine Culture? No
--- NOTE | 2024-07-08 13:44 | ED_ITS ---
HPI - Abdominal Pain 2 General: Chief Complaint: Abdominal Pain Stated Complaint: pain lower right abd, fever Time Seen by Provider: 07/08/24 11:53 History of Present Illness: This patient is a 79-year-old white male who presents to the emergency department complaining of right lower quadrant abdominal pain. He states this came on around 3:00 this morning. He has not had any associated nausea or vomiting. He does have chronic constipation. Has been running a low-grade fever. His temp has been 100.3 this morning. Patient states he has never had any surgery on his abdomen. Associated Symptoms: Reports fever(s) Related Data Home Medications Medication Instructions Recorded Confirmed calcium carbonate (Tums) 200 mg PO BID PRN Indigestion 12/23/22 07/08/24 famotidine 20 mg tablet (Pepcid AC) 20 mg PO DAILY PRN Acid Reflux 12/23/22 07/08/24 nitroglycerin 0.4 mg sublingual 0.4 mg sublingual Q5M PRN Chest 12/23/22 07/08/24 tablet (Nitrostat) Pain furosemide 40 mg tablet 40 mg PO DAILY 01/12/23 07/08/24 potassium chloride 20 mEq 20 meq PO DAILY 02/09/23 07/08/24 tablet,extended release alprazolam 0.25 mg tablet 0.25 mg PO DAILY 02/28/24 07/08/24 clopidogrel 75 mg tablet (Plavix) 75 mg PO DAILY 07/08/24 07/08/24 lisinopril 10 mg tablet 10 mg PO DAILY PRN Blood Pressure 07/08/24 07/08/24 magnesium oxide 400 mg PO DAILY 07/08/24 07/08/24 metoprolol succinate 100 mg 100 mg PO DAILY 07/08/24 07/08/24 tablet,extended release 24 hr (Toprol XL) Previous Rx's Medication Instructions Recorded apixaban 5 mg tablet (Eliquis) 5 mg PO BID #120 tabs 09/28/22 aspirin 81 mg tablet,delayed 81 mg PO DAILY #60 tabs 09/28/22 release sacubitril 97 mg-valsartan 103 mg 1 tab PO BID #180 tabs 01/14/23 tablet Allergies Allergy/AdvReac Type Severity Reaction Status Date / Time No Known Allergies Allergy Verified 02/28/24 09:10 Review of Systems 2 General: Reports: 10 or more systems reviewed and unremarkable except in HPI and below Const: Reports: fever(s) GI: Reports: abdominal pain PFSH ED 2 PFSH: Medical History CHF (congestive heart failure), NYHA class III Prediabetes 09/24/2022 A1C 6.1 CAD (coronary artery disease) [place] in 2002 Chronic GERD Current non-smoker Smoked for 50 years and quit 10 years ago ~ 2012 Snoring Atrial flutter 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) Pericardial effusion Pleural effusion Atelectasis New onset of congestive heart failure [place] & Htn, new CHF admit [facility] 12/01/2022, ~39% LVEF Atrial fibrillation and flutter Hypertension Physical Exam 2 Const: COMMON NORMALS: no acute distress, patient oriented x3 and no limitations GENERAL APPEARANCE: cooperative and comfortable HENMT: COMMON NORMALS: normocephalic, atraumatic, Normal nasal mucous membranes and turbinates present, moist oral mucous membranes and oropharynx normal HEAD & SCALP: normal to inspection, normocephalic and atraumatic F MAHESH & SINUS: normal facial exam NOSE: Normal nasal mucous membranes and turbinates present Eye: COMMON NORMALS: Equal, round and reactive pupils present, EOMs intact bilaterally and conjunctivae normal GENERAL EYE: appearance normal, both eyes and all related structures CONJUNCTIVA: Yes conjunctivae normal PUPIL: Yes Equal, round and reactive pupils present Neck/C-Spine: COMMON NORMALS: supple and no JVD Chest: COMMONS NORMALS: normal inspection of the chest Resp: COMMON NORMALS: normal respiratory effort and clear to auscultation bilaterally AUSCULTATION: clear to auscultation bilaterally Cardio: COMMON NORMALS: no JVD, regular rate, regular rhythm, No gallops present (Cardio), No murmurs present (Cardio) and No rub (Cardio) RATE: r egular rate RHYTHM: regular rhythm GI: COMMON NORMALS: Soft to palpation AUSCULTATION: Yes normoactive bowel sounds PALPATION: Yes Soft to palpation and Yes Tenderness to palpation present (GI) Details: RLQ : COMMON NORMALS: Yes no CVA tenderness BLADDER/KIDNEY EXAM: Yes no CVA tenderness Back/Pelvis: COMMON NORMALS: no CVA tenderness and thoracic and lumbar spine normal to inspection Extremity: COMMON NORMALS: normal to inspection Neuro: COMMON NORMALS: patient oriented x3 and CN's II-XII intact bilaterally Psych: COMMON NORMALS: mental status grossly normal, Normal thought process present and cooperative THOUGHT PROCESS: Normal thought process present Skin: COMMON NORMALS: no rashes or lesions noted, turgor normal and no jaundice GENERAL SKIN EXAM: no rashes or lesions noted and turgor normal Course 2 Vital Signs: Vital signs: Vital Signs Temperature 99.1 F 07/08/24 11:51 Pulse Rate 88 07/08/24 12:55 Respiratory Rate 16 07/08/24 12:55 Blood Pressure 130/65 07/08/24 12:55 Pulse Oximetry 96 07/08/24 12:55 Oxygen Delivery Me thod Room Air 07/08/24 12:55 MDM - Abdominal Pain Medical Decision Making CBC reveals a white blood cell count of 19.4. CMP revealed a BUN of 25 creatinine of 1.4. Lipase was 12. Urinalysis was normal. CT scan of the abdomen pelvis was read by the radiologist. Patient does have acute appendicitis with an appendix measuring 13 mm with surrounding inflammation. No perforation or abscess. Patient declined pain medication. I discussed the case with general surgeon Dr. Reynolds. He would like us to administer Zosyn which I did order. He is on his way to see the patient and will be taking him to the OR. Patient is stable. Lab Data 07/08/24 12:17 07/08/24 12:17 Labs/Radiology: Radiology Impressions Abdomen/Pelvis CT 07/08/24 11:59 IMPRESSION: 1. Acute appendicitis without abscess 2. Prostate enlargement 3. Small umbilical hernia ADDENDUM: 07/08/24 1325 COMMENT: THIS REPORT CONTAINS FINDINGS THAT MAY BE CRITICAL TO PATIENT CARE. The exam findings were verbally communicated by me to SAMANTHA STILES via telephone conference at 1:23 PM [employer] on 07/08/2024. The findings were acknowledged and understood. Laboratory Results WBC 19.39 10^3/uL (3.29-11.43) H 07/08/24 12:17 RBC 4.20 10^6/uL (3.85-5.65) 07/08/24 12:17 Hgb 12.50 g/dL (11.27-16.99) 07/08/24 12:17 Hct 38.3 % (37-53) 07/08/24 12:17 MCV 91.2 fl (82-101) 07/08/24 12:17 MCH 29.8 pg (27-33) 07/08/24 12:17 MCHC 32.6 g/dL (30-55) 07/08/24 12:17 RDW 13.2 % (12.1-15.1) 07/08/24 12:17 Plt Count 232 10^3/cmm (157-399) 07/08/24 12:17 MPV 10.3 fL (7.4-10.4) 07/08/24 12:17 Neut % (Auto) 84.6 % 07/08/24 12:17 Lymph % (Auto) 8.6 % 07/08/24 12:17 [place] % (Auto) 5.8 % 07/08/24 12:17 Eos % (Auto) 0.1 % 07/08/24 12:17 Baso % (Auto) 0.3 % 07/08/24 12:17 Neut # (Auto) 16.43 10^3/uL (1.8-7.7) H 07/08/24 12:17 Lymph # (Auto) 1.7 10^3/uL (0.8-4.8) 07/08/24 12:17 [place] # (Auto) 1.1 10^3/uL (0.2-0.9) H 07/08/24 12:17 Eos # (Auto) 0.0 10^3/uL (0.0-0.8) 07/08/24 12:17 Baso # (Auto) 0.1 10^3/uL (0.0-0.1) 07/08/24 12:17 Nucleated RBC % (auto) 0 % 07/08/24 12:17 Nucleated RBCs # 0.0 /100WBC 07/08/24 12:17 Sodium 140 mmol/L (136-145) 07/08/24 12:17 Potassium 4.4 mmol/L (3.5-5.1) 07/08/24 12:17 Chloride 104 mmol/L (98-107) 07/08/24 12:17 Carbon Dioxide 24 mmol/L (22-29) 07/08/24 12:17 Anion Gap 16.4 (5-19) 07/08/24 12:17 BUN 25 mg/dL (8-23) H 07/08/24 12:17 Creatinine 1.4 mg/dL (0.7-1.2) H 07/08/24 12:17 GFR Calculation Not Reportable 07/08/24 12:17 Glucose 147 mg/dL (65-115) H 07/08/24 12:17 Calculated Osmolality 297 mOsm/kg (285-295) H 07/08/24 12:17 Calcium 8.6 mg/dL (8.5-10.5) 07/08/24 12:17 Total Bilirubin 0.7 mg/dL (0.15-1.2) 07/08/24 12:17 AST 14 U/L (0-40) 07/08/24 12:17 ALT 13 U/L (0-41) 07/08/24 12:17 Alkaline Phosphatase 120 U/L (40-130) 07/08/24 12:17 Total Protein 7.3 g/dL (6.6-8.7) 07/08/24 12:17 Albumin 4.3 g/dL (3.5-5.2) 07/08/24 12:17 Globulin 3.0 g/dL (1.3-4.6) 07/08/24 12:17 Lipase 12 U/L (13-60) L 07/08/24 12:17 Urine Color Yellow (Yellow) 07/08/24 12:55 Urine Appearance Clear (CLEAR) 07/08/24 12:55 Urine pH 7.5 (5-7) 07/08/24 12:55 Ur Specific [place] 1.016 (1.005-1.030) 07/08/24 12:55 Urine Protein Negative (Negative) 07/08/24 12:55 Urine Glucose (UA) Negative (Normal) 07/08/24 12:55 Urine Ketones Negative (Negative) 07/08/24 12:55 Urine Blood Negative (Negative) 07/08/24 12:55 Urine Nitrate Negative (Negative) 07/08/24 12:55 Urine Bilirubin Negative (Negative) 07/08/24 12:55 Urine Urobilinogen 0.2 mg/dL (Negative) 07/08/24 12:55 Ur Leukocyte Esterase Negative (Negative) 07/08/24 12:55 Urine RBC 0-2 /hpf (0-2) 07/08/24 12:55 Urine WBC 0-5 /hpf (0-5) 07/08/24 12:55 Ur Squamous Epith Cells 0-5 /hpf (0-5) 07/08/24 12:55 Amorphous Sediment Not Reportable 07/08/24 12:55 Urine Bacteria None seen /hpf (NONE) 07/08/24 12:55 Hyaline Casts 1.21 /lpf 07/08/24 12:55 All radiology interpretation(s) finalized by discharge Discharge Plan Discharge Patient Disposition: Admitted As Inpatient Clinical Impression: Acute appendicitis Condition: Stable Prescriptions: No Action calcium carbonate [Tums] 200 mg calcium (500 mg) tablet,chewable 200 mg PO BID PRN (Reason: Indigestion) famotidine [Pepcid AC] 20 mg tablet 20 mg PO DAILY PRN (Reason: Acid Reflux) nitroglycerin [Nitrostat] 0.4 mg tablet, sublingual 0.4 mg sublingual Q5M PRN (Reason: Chest Pain) Rx Instructions: do not exceed 3 doses per episode potassium chloride 20 mEq tablet extended release 20 meq PO DAILY alprazolam 0.25 mg tablet 0.25 mg PO DAILY furosemide 40 mg tablet 40 mg PO DAILY sacubitril-valsartan 97-103 mg tablet 1 tab PO BID Qty: 180 3RF clopidogrel [Plavix] 75 mg Tablet 75 mg PO DAILY lisinopril 10 mg Tablet 10 mg PO DAILY PRN (Reason: Blood Pressure) magnesium oxide 400 mg magnesium Tablet 400 mg PO DAILY metoprolol succinate [Toprol XL] 100 mg Tablet Extended Release 24 Hr 100 mg PO DAILY aspirin 81 mg Tablet,Delayed Release (Dr/Ec) 81 mg PO DAILY Qty: 60 2RF Eliquis 5 mg tablet 5 mg PO BID Qty: 120 5RF Coding Level of Care Code ED [employer] for [employer]
[2024-07-08] MEDS: piperacillin-tazobactam 4.5 GM in sodium chloride 0.9% (plus) 50 ML IV (13:55)
[2024-07-08] MEDS: ondansetron 2 mg/ML SDV 2 mL 4 MG IVP (14:05)
--- NOTE | 2024-07-08 14:21 | P.HP_ITS ---
Providers/Chief Complaint 2 Admitting Physician: Brock Reynolds MD Chief Complaint: pain lower right abd, fever History of Present Illness Gianni Patel is a 79 year old male who has history of a recent endovascular intervention for carotid stenosis. He is currently on anticoagulation and presents to the hospital with acute appendicitis verified by imaging. Patient started with abdominal pain and fever this morning, pain is located in the right lower quadrant, he he also had some nausea, no other significant symptoms. Review of Systems 2 General: Reports: 10 or more systems reviewed and unremarkable except in HPI and below Medications/Allergies Home Medications Medication Instructions Recorded Confirmed Last Taken Type apixaban 5 mg tablet (Eliquis) 5 mg PO BID #120 tabs 09/28/22 07/08/24 07/08/24 Rx aspirin 81 mg tablet,delayed 81 mg PO DAILY #60 tabs 09/28/22 07/08/24 07/08/24 Rx release calcium carbonate (Tums) 200 mg PO BID PRN Indigestion 12/23/22 07/08/24 Unknown History famotidine 20 mg tablet (Pepcid AC) 20 mg PO DAILY PRN Acid Reflux 12/23/22 07/08/24 Unknown History nitroglycerin 0.4 mg sublingual 0.4 mg sublingual Q5M PRN Chest 12/23/22 07/08/24 Unknown History tablet (Nitrostat) Pain furosemide 40 mg tablet 40 mg PO DAILY 01/12/23 07/08/24 07/08/24 History sacubitril 97 mg-valsartan 103 mg 1 tab PO BID #180 tabs 01/14/23 07/08/24 07/08/24 Rx tablet potassium chloride 20 mEq 20 meq PO DAILY 02/09/23 07/08/24 07/08/24 History tablet,extended release alprazolam 0.25 mg tablet 0.25 mg PO DAILY 02/28/24 07/08/24 07/08/24 History clopidogrel 75 mg tablet (Plavix) 75 mg PO DAILY 07/08/24 07/08/24 07/08/24 History lisinopril 10 mg tablet 10 mg PO DAILY PRN Blood Pressure 07/08/24 07/08/24 Unknown History magnesium oxide 400 mg PO DAILY 07/08/24 07/08/24 07/08/24 History metoprolol succinate 100 mg 100 mg PO DAILY 07/08/24 07/08/24 07/08/24 History tablet,extended release 24 hr (Toprol XL) Allergies Allergy/AdvReac Type Severity Reaction Status Date / Time No Known Allergies Allergy Verified 02/28/24 09:10 PFSH Acute 2 PFSH: Medical History CHF (congestive heart failure), NYHA class III Prediabetes 09/24/2022 A1C 6.1 CAD (coronary artery disease) [place] in 2002 Chronic GERD Current non-smoker Smoked for 50 years and quit 10 years ago ~ 2012 Snoring Atrial flutter 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 12/01/2022, ~39% LVEF Atrial fibrillation and flutter Hypertension Vitals/I&O/Wt Last Vital Signs Temp 99.1 F 07/08/24 11:51 Pulse 90 07/08/24 13:45 Resp 16 07/08/24 13:45 BP 151/56 07/08/24 13:45 Pulse Ox 97 07/08/24 13:45 O2 Del Method Room Air 07/08/24 13:45 Weight last 48 hrs Weight 178 lb Physical Exam 2 Narrative: General : Patient is well developed , no acute distress, oriented x3 Head : Normal cephalic, a-traumatic. Nose : Mucous membranes are without erythema. Lungs : Equal chest rise bilaterally, no use of accessory muscles, trachea is midline. CV : Rate and rhythm are normal. Abdomen : Soft, there is tenderness to palpation of the right lower quadrant, McBurney positive Extremities : No edema. Upper extremities are normal bilaterally. Back : non-tender to palpation, no CVA tenderness. Data 07/08/24 12:17 07/08/24 12:17 A&P Assessment and plan (1) Acute appendicitis: Qualifiers: Acute appendicitis type: with localized peritonitis Appendicitis abscess presence: without abscess Appendicitis gangrene presence: unspecified whether gangrene present Appendicitis perforation presence: without perforation Qualified Code(s): K35.30 - Acute appendicitis with localized peritonitis, without perforation or gangrene (2) CHF (congestive heart failure), NYHA class III: Qualifiers: Congestive heart failure type: systolic Congestive heart failure chronicity: chronic Qualified Code(s): I50.22 - Chronic systolic (congestive) heart failure (3) Medication induced coagulopathy: Plan After complete history, physical examination and review of all available clinical data the following is my assessment. Patient does have acute appendicitis, appendix does not appear perforated, unfortunately there are several appendicoliths, therefore the likelihood of nonoperative management to be successful is very low, in the setting I think the best option for the patient is to proceed to the operating room for laparoscopic appendectomy. This will be a very high risk procedure due to the patient: Antiplatelet anticoagulation therapy. I have discussed this with the patient and family members that have explained that he is not strongly high risk for bleeding need for transfusion and even , have discussed all recent benefits of the procedure including the risks of infection, intra-abdominal abscess, injury to surrounding structures, hernia formation, shock and . Patient and family member showed understanding and wished to proceed. Patient will receive a dose of Zosyn and we will go to the OR. -Zosyn IV -On-call to the OR for laparoscopic appendectomy -Type and screen Attestations 2 Medical Necessity Statement*: Patient will require 24 to 48 hours of hospital stay for management of acute appendicitis. Coding Level of Care Code 29579 Diagnoses Acute appendicitis K35.30 Acute appendicitis type: with localized peritonitis Appendicitis abscess presence: without abscess Appendicitis gangrene presence: unspecified whether gangrene present Appendicitis perforation presence: without perforation Chronic systolic congestive heart failure, NYHA class 3 I50.22 Congestive heart failure type: systolic Congestive heart failure chronicity: chronic Medication induced coagulopathy D68.9; T50.905A
--- NOTE | 2024-07-08 14:44 | P.ANESASSM_ITS ---
Pre-Anesthetic Assessment Height/Weight: Height 1.73 m Weight 80.739 kg Temp Pulse Resp BP Pulse Ox O2 Del Method 101.5 F H 89 20 H 122/38 96 Room Air 07/08/24 14:25 07/08/24 14:25 07/08/24 14:25 07/08/24 14:25 07/08/24 14:25 07/08/24 13:45 Preop Diagnosis: acute appendicitis Operation Date: 07/08/24 14:45 Proposed Procedures p Laparoscopic Appendectomy(Not Applicable) - Brock Reynolds MD Familial anesthetic complications: none Was Beta Zeeshan taken within 24 hours: Yes Was Clonidine taken within 24 hours: N/A Last intake: last night Social No alcohol and No tobacco Exam alert and oriented x 3 Airway Submandibular: within normal limits Cervical ROM: within normal limits Mallampati: Class II Dentition: false Pulmonary Exertional Dyspnea CV/HEM Atrial Fibrillation, Congestive Heart Failure (EF 35%), Hypertension and Myocardial Infarction None reported Hepatic None reported GI Gastroesophageal Reflux Disease Metabolic None reported Musc/skel None reported Neuropsych None reported Anesthetic Plan ASA status: 3E Anesthesia: Anesthesia Evaluation and General Medications/Allergies Home Medications Medication Instructions Recorded Confirmed Last Taken Type apixaban 5 mg tablet (Eliquis) 5 mg PO BID #120 tabs 09/28/22 07/08/24 07/08/24 Rx aspirin 81 mg tablet,delayed 81 mg PO DAILY #60 tabs 09/28/22 07/08/24 07/08/24 Rx release calcium carbonate (Tums) 200 mg PO BID PRN Indigestion 12/23/22 07/08/24 Unknown History famotidine 20 mg tablet (Pepcid AC) 20 mg PO DAILY PRN Acid Reflux 12/23/22 07/08/24 Unknown History nitroglycerin 0.4 mg sublingual 0.4 mg sublingual Q5M PRN Chest 12/23/22 07/08/24 Unknown History tablet (Nitrostat) Pain furosemide 40 mg tablet 40 mg PO DAILY 01/12/23 07/08/24 07/08/24 History sacubitril 97 mg-valsartan 103 mg 1 tab PO BID #180 tabs 01/14/23 07/08/24 07/08/24 Rx tablet potassium chloride 20 mEq 20 meq PO DAILY 02/09/23 07/08/24 07/08/24 History tablet,extended release alprazolam 0.25 mg tablet 0.25 mg PO DAILY 02/28/24 07/08/24 07/08/24 History clopidogrel 75 mg tablet (Plavix) 75 mg PO DAILY 07/08/24 07/08/24 07/08/24 History lisinopril 10 mg tablet 10 mg PO DAILY PRN Blood Pressure 07/08/24 07/08/24 Unknown History magnesium oxide 400 mg PO DAILY 07/08/24 07/08/24 07/08/24 History metoprolol succinate 100 mg 100 mg PO DAILY 07/08/24 07/08/24 07/08/24 History tablet,extended release 24 hr (Toprol XL) Allergies Allergy/AdvReac Type Severity Reaction Status Date / Time No Known Allergies Allergy Verified 02/28/24 09:10 [facility] Anesthesia Medical History CHF (congestive heart failure), NYHA class III Prediabetes 09/24/2022 A1C 6.1 CAD (coronary artery disease) [place] in 2002 Chronic GERD Current non-smoker Smoked for 50 years and quit 10 years ago ~ 2012 Snoring Atrial flutter 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) Pericardial effusion Pleural effusion Atelectasis New onset of congestive heart failure [place] & Htn, new CHF admit [facility] 12/01/2022, ~39% LVEF Atrial fibrillation and flutter Hypertension Data Anesthesia 07/08/24 12:17 07/08/24 12:17 Short CBC 07/08/24 Range/Units 12:17 WBC 19.39 H (3.29-11.43) 10^3/uL Hgb 12.50 (11.27-16.99) g/dL Hct 38.3 (37-53) % MCV 91.2 (82-101) fl Plt Count 232 (157-399) 10^3/cmm Neut % (Auto) 84.6 % Neut # (Auto) 16.43 H (1.8-7.7) 10^3/uL BMP 07/08/24 12:17 Sodium 140 Potassium 4.4 Chloride 104 Carbon Dioxide 24 BUN 25 H Creatinine 1.4 H Glucose 147 H Calcium 8.6 Liver Function 07/08/24 Range/Units 12:17 Total Bilirubin 0.7 (0.15-1.2) mg/dL AST 14 (0-40) U/L ALT 13 (0-41) U/L Alkaline Phosphatase 120 (40-130) U/L Albumin 4.3 (3.5-5.2) g/dL Urine 07/08/24 Range/Units 12:55 Urine Color Yellow (Yellow) Urine Appearance Clear (CLEAR) Urine pH 7.5 (5-7) Ur Specific [place] 1.016 (1.005-1.030) Urine Protein Negative (Negative) Urine Glucose (UA) Negative (Normal) Urine Ketones Negative (Negative) Urine Nitrate Negative (Negative) Urine Bilirubin Negative (Negative) Ur Leukocyte Esterase Negative (Negative) Urine RBC 0-2 (0-2) /hpf Urine WBC 0-5 (0-5) /hpf Cardiac Studies: 2 Echocardiogram 09/25/22 Sestamibi Stress Test (Cardiology) 09/26
[2024-07-08] MEDS: BUPivacaine 0.25% INJ 10 mL INJECTION (15:21)
[2024-07-08] MEDS: lidocaine-epi 1% 20 mL INJ 10 ML INJECTION (15:21)
--- NOTE | 2024-07-08 16:00 | P.OP_ITS ---
Operative Report Date of procedure: July 08, 2024 Pre-op diagnosis: Acute appendicitis Post-op diagnosis: Same Post-op findings: There was an inflamed appendix, no rupture, healthy base. There was an initial phlegmon formation between the terminal ileum and appendix Procedure done: Laparoscopic appendectomy Specimens removed/disposition: Appendix Surgeon: Brock Reynolds MD Collection Officer: RADHA OR STaff Estimated blood loss: 10 10 Complications: none Brief History: This is a 79-year-old male who presented to the hospital with concerns for appendicitis, this was verified with imaging. With side to proceed to the OR after discussion of all risks and benefits as documented in my preop note. Procedure: Patient was brought into the OR, he was placed in the supine position. General anesthesia was given. The abdomen was prepped and draped in the usual sterile fashion. A timeout was conducted. The abdomen was accessed via an infraumbilical incision measuring 15 mm, this was done with an open technique, Araujo trocar was placed and fixed to the fascia with #0 Vicryl. Initial pneumoperitoneum was obtained and no evidence of visceral injury during entry was noted. Additional 5 mm trocars were placed in the suprapubic and left lower quadrant positions under direct visualization. The patient was placed in the steep Trendelenburg with the left side down. An inflammatory process was noted on the right lower quadrant, with careful blunt dissection I was able to umbilical the appendix from a early phlegmon that was being formed between the appendix and the terminal ileum. The appendix appeared to be very inflamed, I was able to elevate the appendix with blunt dissection from the pelvic sidewall. I then took down the mesoappendix from the tip to the base of the appendix using LigaSure. The base of the appendix appeared healthy, I then proceeded to transect the appendix using a 45 mm blue load Endo GIGI stapler. The staple line appeared hemostatic and intact. The appendix was retrieved via the umbilical trocar site in an Endo Catch bag. I then proceeded to verify hemostasis, while there was no evidence of active bleeding I decided to desufflate the abdomen for 2 minutes and then reinsufflated to ensure that there was no residual bleeding as patient is coagulopathic. No evidence of bleeding was noted. I then proceeded to evaluate the suprapubic and left lower quadrant trocar sites for evidence of bleeding I did this by carefully removing the cannula and reinserting it after no bleeding was encountered. The umbilical trocar was then removed, I closed this incision using a Radha suture passer under direct visualization this was done with a 0 Vicryl. No bleeding was noted from the umbilical trocar site after closure. The supra pubic trocar was then completely removed under direct visualization the left lower quadrant trocar was used to evacuate the pneumoperitoneum and subsequently removed. Hemostasis was verified and all the trocar sites. The wounds were then closed with #4-0 Monocryl for the skin and Dermabond was applied. At the end of the procedure all counts were correct, the patient tolerated well the procedure once tr ansferred to the PACU in stable condition.
--- NOTE | 2024-07-08 16:50 | ANE.PACU2 ---
Inpatient post-anesthesia follow up: Airway intact: Yes Vital signs: Temperature 97.6 F Pulse Rate 65 Respiratory Rate 16 Blood Pressure 115/65 Pulse Oximetry 95 Oxygen Delivery Me thod Room Air Oxygen Flow Rate Fraction of Inspir ed Oxygen Hydration adequate: Yes Nausea and vomiting: No Pain level: 1 Mental status: Baseline
--- NOTE | 2024-07-08 17:12 | PC.NURSE ---
3219 - met in room by floor nurse, Sue, report given to her per this nurse as report had previously been given to ARUN Young charge - Sue at bedside to verify pts abd dressing c/d/i - vss BP at 119/53 - pulse 72 - 92% o2 on room air - temp at 99.1 - report to Sue of pts pre op arrival temp as well as Dr. Lao order to have pt void in 6 hours or do bladder scan - pt accepted to floor per Sue
[2024-07-08] MEDS: acetaminophen 1,000 MG/100 ML PIGGYBACK 400 MG IV (20:08)
[2024-07-08] MEDS: lactated ringers 1,000 ML 50 ML IV (20:08)
--- NOTE | 2024-07-08 22:20 | PC.NURSE ---
pt urged to urinate, but unable to. He does not have the sensation to either. Scanned bladder and only approx 35ml in bladder at this time. Pt is tolerating clear liquids fine and stated he will continue to drink water. He also had fluids started at 1999.
[2024-07-08] MEDS: piperacillin-tazobactam 3.375 GM in sodium chloride 0.9% (plus) 50 ML IV (22:54)
[2024-07-09] VITALS: BP 100/60; PULSE 84; RESP 17; TEMP 36.7; O2SAT 94
[2024-07-09] MEDS: acetaminophen 1,000 MG/100 ML PIGGYBACK 400 MG IV ×2 (03:41→12:14)
[2024-07-09 04:00] VITALS: BP 132/60; PULSE 60; RESP 20; TEMP 36.4; O2SAT 96
[2024-07-09 04:36] LABS: Basophils % 0.1 %; Hematocrit 34.4 % (37-53); Lymphocytes # 1.9 10^3/uL (0.8-4.8); Lymphocytes % 9.4 %; Mean Corpuscular HGB Conc 31.4 g/dL (30-55); Mean Corpuscular Hemoglobin 30.2 pg (27-33); Mean Corpuscular Volume 96.1 fl (82-101); Mean Platelet Volume 10.3 fL (7.4-10.4); Monocytes # 1.2 10^3/uL (0.2-0.9); Monocytes % 6.1 %; Neutrophils # 16.68 10^3/uL (1.8-7.7); Nucleated Red Blood Cells % 0 %; Platelet Count 196 10^3/cmm (157-399); Red Blood Count 3.58 10^6/uL (3.85-5.65); Red Cell Distribution Width 13.4 % (12.1-15.1); White Blood Count 19.85 10^3/uL (3.29-11.43)
[2024-07-09 04:53] LABS: Anion Gap 15.2 (5-19); Blood Urea Nitrogen 24 mg/dL (8-23); Calcium 7.7 mg/dL (8.5-10.5); Carbon Dioxide 21 mmol/L (22-29); Chloride 105 mmol/L (98-107); Creatinine Clr Calc Pharmacy 45.2032; Glucose 140 mg/dL (65-115); Magnesium 2.8 mg/dL (1.7-2.3); Osmolality Calculated 290 mOsm/kg (285-295); Phosphorus 3.3 mg/dL (2.5-4.5); Potassium 4.2 mmol/L (3.5-5.1); Sodium 137 mmol/L (136-145)
--- NOTE | 2024-07-09 05:18 | PC.NURSE ---
Pt still unable to void after 12 hours, and many attempts. He never felt the urge to go he said. Bladder scanned again on approx 100ml in bladder. Called physician because i wasnt confident that the bladder scanner was accurate as pt is oral intaking a lot of water as well as receiving IVF. Called darius he ordered straight cath but to leave in if bladder contents over 600. Pt tolerated sterile procedure well approx 600mls of urine returned so connor bag attached.
[2024-07-09] MEDS: piperacillin-tazobactam 3.375 GM in sodium chloride 0.9% (plus) 50 ML IV ×3 (06:12→21:06)
[2024-07-09 07:00] VITALS: BP 117/62; PULSE 59; RESP 17; TEMP 36.6; O2SAT 95
--- NOTE | 2024-07-09 07:11 | P.PN_ITS ---
Subjective 2 Subjective: Postoperative day 1 status post laparoscopic appendectomy for acute appendicitis. This was done in the setting of coagulopathy due to p.o. anticoagulation. Patient doing well overnight, failed trial of void, Walters was reinserted this morning with an output of 600 cc. No abdominal pain Vitals/I&O/Wt Last Vital Signs Temp 97.6 F 07/09/24 04:00 Pulse 60 07/09/24 04:00 Resp 20 H 07/09/24 04:00 BP 132/60 07/09/24 04:00 Pulse Ox 96 07/09/24 04:00 O2 Del Method Room Air 07/09/24 04:00 07/08/24 07/09/24 07/09/24 22:59 06:59 14:59 Intake Total 2650 / 2700 150 / 2850 Output Total 510 / 510 Balance 2140 / 2190 150 / 2340 Weight last 48 hrs Weight 185 lb 8 oz Weight 178 lb Weight 178 lb Physical Exam 2 GI: OTHER: abdominal exam is benign abdomen is soft minimal tender to palpation, surgical incisions are covered with Dermabond, no overt evidence of bleeding. Urinary Catheter Management: Walters: Cath Placed During This Visit: yes, but has since been removed by the nurse Reason for Continuing Indwelling Catheter: Acute Urinary Retention or Obstruction Urinary Catheter Date of Insertion: 07/09/24 Urinary Catheter Time of Insertion: 05:30 Date Urinary Catheter Removed: 07/08/24 Time Urinary Catheter Discontinued: 16:05 Data 07/09/24 04:23 07/09/24 04:23 A&P Assessment and plan (1) Acute appendicitis: Qualifiers: Acute appendicitis type: with localized peritonitis Appendicitis abscess presence: without abscess Appendicitis gangrene presence: unspecified whether gangrene present Appendicitis perforation presence: without perforation Qualified Code(s): K35.30 - Acute appendicitis with localized peritonitis, without perforation or gangrene Plan Patient showing good progression after laparoscopic appendectomy, white count continues to be elevated at 19,000, we will need to monitor her downtrend of the white count. In addition he developed urinary retention requiring Walters catheter, we will start the patient on tamsulosin today with the hopes of removing Walters catheter tomorrow morning, if he redevelops urinary retention after that the next step will be to send him home with a Walters back and he will have to follow-up with urology as outpatient. We will restart patient p.o. blood pressure medication. Anticoagulation will be still on hold until tomorrow. Attestations 2 Medical Necessity Statement*: Patient will require 24 to 48 hours of hospital stay for management of acute appendicitis in the setting of coagulopathy and acute urinary retention. Coding Level of Care Code Acute Code for [facility] Diagnoses Acute appendicitis K35.30 Acute appendicitis type: with localized peritonitis Appendicitis abscess presence: without abscess Appendicitis gangrene presence: unspecified whether gangrene present Appendicitis perforation presence: without perforation
[2024-07-09] MEDS: tamsulosin 0.4 mg Capsule PO (08:14)
[2024-07-09] MEDS: sacubitril/valsartan 24-26 mg Tablet 4 EACH PO ×2 (08:14→17:10)
[2024-07-09] MEDS: polyethylene glycol 3350 Pkt 17 gm PO (08:14)
[2024-07-09 09:17] LABS: INR 1.27 (0.8-1.2)
[2024-07-09 10:00] VITALS: BP 115/65; PULSE 65; RESP 16; TEMP 36.4; O2SAT 95
--- NOTE | 2024-07-09 10:11 | PC.CHAP ---
Pastoral Care Encounter/Spiritual Assessment Type of Contact [] Declined clinical trials assistant visit [] Patient/Family/Request visit [] Outpatient visit [] Follow-up visit [] Physician referral [] Code/Alert [x] Routine visit [] Staff referral [] Actively dying [] Patient sleeping [x] Family support [] [] Out of room [] Palliative care [] [] Receiving care in room [] Pre-surgical visit [] Trauma [] Long length of stay [] ICU visit [] Other: Relational/Emotional Strength [] Patient feels connected with others/family/visitors/staff [] Distress [] Loneliness/isolation [] Abandonment Spirituality of Patient [x] Person of Kenyatta [x] Attends Protestant of their Kenyatta [x] Believes in Prayer [] Reads Bible or Lutheran materials [] There are Spiritual issues to be addressed Wheel Braider Interventions [x] Prayer [x] Active listening [] Non-anxious presence [] Spiritual/emotional support [] Crisis/trauma care [] Spiritual counseling [] Bereavement support [] Provided bereavement packet [x] Provided Bible/devotional materials [] Provided toy/stuffed animal, coloring book to patient or family member [] Provided Communion [] Anointing/Sigurd [] Salvation [x] Completed spiritual assessment [] Other: Impact on Illness or Injury [] Angry [] Fearful [] Anxious [] Often cries [] Exhaustion [] Unable to work [] Unable to attend latter-day [] Unable to walk/stand [] Unable to read [] Unable to drive [] Unable to eat/drink [] Unable to sleep [] Unable to be with family [] Patient intubated [] Other: Summary Time spent with patient 20 min
[2024-07-09 15:00] VITALS: BP 130/69; PULSE 66; RESP 18; TEMP 36.4; O2SAT 95
[2024-07-09] MEDS: lactated ringers 1,000 ML 50 ML IV (16:38)
[2024-07-09 19:56] VITALS: BP 126/72; PULSE 72; RESP 18; TEMP 36.4; O2SAT 95
[2024-07-10] VITALS: BP 150/72; PULSE 91; RESP 18; TEMP 36.6; O2SAT 94
[2024-07-10 04:00] VITALS: BP 140/71; PULSE 90; RESP 18; TEMP 36.4; O2SAT 95
[2024-07-10 05:26] LABS: Basophils % 0.2 %; Eosinophils # 0.1 10^3/uL (0.0-0.8); Eosinophils % 1.2 %; Hematocrit 30.7 % (37-53); Lymphocytes # 1.8 10^3/uL (0.8-4.8); Lymphocytes % 17.3 %; Mean Corpuscular HGB Conc 32.2 g/dL (30-55); Mean Corpuscular Hemoglobin 29.8 pg (27-33); Mean Corpuscular Volume 92.5 fl (82-101); Mean Platelet Volume 10.4 fL (7.4-10.4); Monocytes # 0.8 10^3/uL (0.2-0.9); Monocytes % 7.6 %; Neutrophils # 7.42 10^3/uL (1.8-7.7); Neutrophils % 73.1 %; Nucleated Red Blood Cells % 0 %; Platelet Count 187 10^3/cmm (157-399); Red Blood Count 3.32 10^6/uL (3.85-5.65); Red Cell Distribution Width 13.4 % (12.1-15.1); White Blood Count 10.15 10^3/uL (3.29-11.43)
[2024-07-10] MEDS: piperacillin-tazobactam 3.375 GM in sodium chloride 0.9% (plus) 50 ML IV (05:36)
[2024-07-10 05:50] LABS: Anion Gap 12.9 (5-19); Blood Urea Nitrogen 14 mg/dL (8-23); Calcium 7.6 mg/dL (8.5-10.5); Carbon Dioxide 22 mmol/L (22-29); Chloride 108 mmol/L (98-107); Glucose 120 mg/dL (65-115); Magnesium 2.5 mg/dL (1.7-2.3); Osmolality Calculated 290 mOsm/kg (285-295); Potassium 3.9 mmol/L (3.5-5.1); Sodium 139 mmol/L (136-145)
[2024-07-10 07:37] VITALS: BP 136/69; PULSE 79; RESP 18; TEMP 36.4; O2SAT 92
--- NOTE | 2024-07-10 07:47 | P.DS_ITS ---
Discharge Providers Date of Admission: 07/08/24 14:38 Date of Discharge: July 10, 2024 Attending Provider at Admission: Brock Reynolds MD Attending Provider at Discharge: Brock Reynolds MD Diagnoses at Discharge Discharge Diagnosis (1) Acute appendicitis: Status: Acute Qualifiers: Acute appendicitis type: with localized peritonitis Appendicitis abscess presence: without abscess Appendicitis gangrene presence: unspecified whether gangrene present Appendicitis perforation presence: without perforation Qualified Code(s): K35.30 - Acute appendicitis with localized peritonitis, without perforation or gangrene Reason for Visit Reason for Visit: pain lower right abd, fever Hospital Course Hospital Course Is a 79-year-old male who was admitted to the hospital with acute appendicitis. Patient was taken to the operating room for a laparoscopic appendectomy which was done without complications. This was done in the setting of Coagulopathy caused by medications. Since surgery patient has been doing okay, he did have urinary retention the first day postop and a Walters catheter was placed. In the last 24 hours he was initiated on tamsulosin and after Walters removal he has been able to void. Only complaint is some abdominal distention related to gas. No significant abdominal pain. White count has down trended hemoglobin is stable and creatinine has normalized. Patient will be transition to the outpatient setting and will follow-up in my clinic in 2 weeks. Physical Exam GI: OTHER: Abdomen soft, appropriately tender, minimally distended. Urinary Catheter Management: Walters: Cath Placed During This Visit: yes, but has since been removed by the nurse Reason for Continuing Indwelling Catheter: Decision to DC Catheter Urinary Catheter Date of Insertion: 07/09/24 Urinary Catheter Time of Insertion: 05:30 Date Urinary Catheter Removed: 07/09/24 Time Urinary Catheter Discontinued: 21:00 Discharge Data Studies Completed and Pending Completed Studies During Hospitalization Category Date Time Status CT abdomen pelvis wo con [id number] Stat Cat Scan 07/08/24 11:59 Completed Pending at discharge Category Date Time Status Basic Metabolic Panel AM LABS Lab 07/11/24 04:00 Ordered Complete Blood Count w/Auto AM LABS Lab 07/11/24 04:00 Ordered Magnesium AM LABS Lab 07/11/24 04:00 Ordered Phosphorus AM LABS Lab 07/11/24 04:00 Ordered Pathology: Surgical [PTH] Routine Pth 07/08/24 16:02 Received Radiology Impressions Abdomen/Pelvis CT 07/08/24 11:59 IMPRESSION: 1. Acute appendicitis without abscess 2. Prostate enlargement 3. Small umbilical hernia ADDENDUM: 07/08/24 1325 COMMENT: THIS REPORT CONTAINS FINDINGS THAT MAY BE CRITICAL TO PATIENT CARE. The exam findings were verbally communicated by me to SAMANTHA STILES via telephone conference at 1:23 PM PAPER BAG PRESS OPERATOR on 07/08/2024. The findings were acknowledged and understood. Laboratory Results WBC 10.15 10^3/uL (3.29-11.43) 07/10/24 04:55 RBC 3.32 10^6/uL (3.85-5.65) L 07/10/24 04:55 Hgb 9.90 g/dL (11.27-16.99) L 07/10/24 04:55 Hct 30.7 % (37-53) L 07/10/24 04:55 MCV 92.5 fl (82-101) 07/10/24 04:55 MCH 29.8 pg (27-33) 07/10/24 04:55 MCHC 32.2 g/dL (30-55) 07/10/24 04:55 RDW 13.4 % (12.1-15.1) 07/10/24 04:55 Plt Count 187 10^3/cmm (157-399) 07/10/24 04:55 MPV 10.4 fL (7.4-10.4) 07/10/24 04:55 Neut % (Auto) 73.1 % 07/10/24 04:55 Lymph % (Auto) 17.3 % 07/10/24 04:55 [place] % (Auto) 7.6 % 07/10/24 04:55 Eos % (Auto) 1.2 % 07/10/24 04:55 Baso % (Auto) 0.2 % 07/10/24 04:55 Neut # (Auto) 7.42 10^3/uL (1.8-7.7) 07/10/24 04:55 Lymph # (Auto) 1.8 10^3/uL (0.8-4.8) 07/10/24 04:55 [place] # (Auto) 0.8 10^3/uL (0.2-0.9) 07/10/24 04:55 Eos # (Auto) 0.1 10^3/uL (0.0-0.8) 07/10/24 04:55 Baso # (Auto) 0.0 10^3/uL (0.0-0.1) 07/10/24 04:55 Nucleated RBC % (auto) 0 % 07/10/24 04:55 Nucleated RBCs # 0.0 /100WBC 07/10/24 04:55 PT 16.30 SECONDS (12.1-14.9) H 07/09/24 08:49 INR 1.27 (0.8-1.2) H 07/09/24 08:49 Sodium 139 mmol/L (136-145) 07/10/24 04:55 Potassium 3.9 mmol/L (3.5-5.1) 07/10/24 04:55 Chloride 108 mmol/L (98-107) H 07/10/24 04:55 Carbon Dioxide 22 mmol/L (22-29) 07/10/24 04:55 Anion Gap 12.9 (5-19) 07/10/24 04:55 BUN 14 mg/dL (8-23) 07/10/24 04:55 Creatinine 1.1 mg/dL (0.7-1.2) 07/10/24 04:55 GFR Calculation Not Reportable 07/10/24 04:55 Glucose 120 mg/dL (65-115) H 07/10/24 04:55 Calculated Osmolality 290 mOsm/kg (285-295) 07/10/24 04:55 Calcium 7.6 mg/dL (8.5-10.5) L 07/10/24 04:55 Phosphorus 2.0 mg/dL (2.5-4.5) L 07/10/24 04:55 Magnesium 2.5 mg/dL (1.7-2.3) H 07/10/24 04:55 Total Bilirubin 0.7 mg/dL (0.15-1.2) 07/08/24 12:17 AST 14 U/L (0-40) 07/08/24 12:17 ALT 13 U/L (0-41) 07/08/24 12:17 Alkaline Phosphatase 120 U/L (40-130) 07/08/24 12:17 Total Protein 7.3 g/dL (6.6-8.7) 07/08/24 12:17 Albumin 4.3 g/dL (3.5-5.2) 07/08/24 12:17 Globulin 3.0 g/dL (1.3-4.6) 07/08/24 12:17 Lipase 12 U/L (13-60) L 07/08/24 12:17 Urine Color Yellow (Yellow) 07/08/24 12:55 Urine Appearance Clear (CLEAR) 07/08/24 12:55 Urine pH 7.5 (5-7) 07/08/24 12:55 Ur Specific [place] 1.016 (1.005-1.030) 07/08/24 12:55 Urine Protein Negative (Negative) 07/08/24 12:55 Urine Glucose (UA) Negative (Normal) 07/08/24 12:55 Urine Ketones Negative (Negative) 07/08/24 12:55 Urine Blood Negative (Negative) 07/08/24 12:55 Urine Nitrate Negative (Negative) 07/08/24 12:55 Urine Bilirubin Negative (Negative) 07/08/24 12:55 Urine Urobilinogen 0.2 mg/dL (Negative) 07/08/24 12:55 Ur Leukocyte Esterase Negative (Negative) 07/08/24 12:55 Urine RBC 0-2 /hpf (0-2) 07/08/24 12:55 Urine WBC 0-5 /hpf (0-5) 07/08/24 12:55 Ur Squamous Epith Cells 0-5 /hpf (0-5) 07/08/24 12:55 Amorphous Sediment Not Reportable 07/08/24 12:55 Urine Bacteria None seen /hpf (NONE) 07/08/24 12:55 Hyaline Casts 1.21 /lpf 07/08/24 12:55 Blood Type O Positive 07/08/24 14:46 Rho(D) Type Rh positive 07/08/24 14:46 Antibody Screen Negative 07/08/24 14:46 Vitals Last Vital Signs Temp 97.6 F 07/10/24 07:37 Pulse 79 07/10/24 07:37 Resp 18 07/10/24 07:37 BP 136/69 07/10/24 07:37 Pulse Ox 92 07/10/24 07:37 O2 Del Method Room Air 07/10/24 07:37 Discharge Plan Discharge Patient Disposition: Home Condition: Stable Prescriptions: New oxycodone 5 mg tablet 5 mg PO Q8H PRN (Reason: pain) Qty: 14 0RF amoxicillin-pot clavulanate 875-125 mg tablet 1 tab PO BID 7 Days Qty: 14 0RF polyethylene glycol 3350 [Miralax] 17 gram powder in packet 17 g PO BID 7 Days Qty: 14 0RF docusate sodium 100 mg capsule 100 mg PO DAILY Qty: 7 0RF Continued calcium carbonate [Tums] 200 mg calcium (500 mg) tablet,chewable 200 mg PO BID PRN (Reason: Indigestion) famotidine [Pepcid AC] 20 mg tablet 20 mg PO DAILY PRN (Reason: Acid Reflux) nitroglycerin [Nitrostat] 0.4 mg tablet, sublingual 0.4 mg sublingual Q5M PRN (Reason: Chest Pain) Rx Instructions: do not exceed 3 doses per episode potassium chloride 20 mEq tablet extended release 20 meq PO DAILY alprazolam 0.25 mg tablet 0.25 mg PO DAILY furosemide 40 mg tablet 40 mg PO DAILY sacubitril-valsartan 97-103 mg tablet 1 tab PO BID Qty: 180 3RF lisinopril 10 mg Tablet 10 mg PO DAILY PRN (Reason: Blood Pressure) magnesium oxide 400 mg magnesium Tablet 400 mg PO DAILY metoprolol succinate [Toprol XL] 100 mg Tablet Extended Release 24 Hr 100 mg PO DAILY Held clopidogrel [Plavix] 75 mg Tablet 75 mg PO DAILY Hold Instructions: Resume on 07/13/24. aspirin 81 mg Tablet,Delayed Release (Dr/Ec) 81 mg PO DAILY Qty: 60 2RF Hold Instructions: Resume on 07/13/24. Eliquis 5 mg tablet 5 mg PO BID Qty: 120 5RF Hold Instructions: Resume on 07/13/24. Discharge Orders: Discharge Order (Routine); Ordered 07/10/24 Ordered By: Brock Reynolds Referrals: Brock Reynolds MD [Physician] - (2 weeks) Discharge Diet: Advance as tolerated Discharge Activity: Limit activity as instructed Patient Instructions: Opioid Safety Activity Restrictions/Additional Instructions: No heavy lifting for the next 6 weeks, please walk is much as possible this will speed up your recovery. Return to the hospital if you have fever chills severe abdominal pain that is getting worse over time or significant lightheadedness. You can restart your anticoagulation on Tuesday. Please take your medication as indicated, please take the stool softeners even if you are not taking the oxycodone. Discharge Attestations Time Spent in Discharge Care*: greater than 30 min Quality Metrics Clinical Quality Measures [ No reported AMI, CVA or VTE this stay] Coding Level of Care Code Acute Code for [facility] Fwd Diagnoses Acute appendicitis K35.30 Acute appendicitis type: with localized peritonitis Appendicitis abscess presence: without abscess Appendicitis gangrene presence: unspecified whether gangrene present Appendicitis perforation presence: without perforation
--- NOTE | 2024-07-10 08:12 | PC.SOCIAL ---
[facility]ed [facility] to [facility]. [facility] notes. No other needs voiced for CM.
[2024-07-10] MEDS: tamsulosin 0.4 mg Capsule PO (08:26)
[2024-07-10] MEDS: sennosides-docusate Tablet 1 TAB PO (08:26)
[2024-07-10] MEDS: polyethylene glycol 3350 Pkt 17 gm PO (08:26)
[2024-07-10] MEDS: sacubitril/valsartan 24-26 mg Tablet 4 EACH PO (08:26)
[2024-07-10 11:30] VITALS: BP 150/71; PULSE 91; RESP 18; TEMP 36.8; O2SAT 96
== END 2024-07-10 12:46 | disposition home or self-care (01) ==
LOC: ER 13:50 → OR 13:51 → MEDSURG 15:28
PROVIDERS: Admitting Provider Surgery; Emergency Provider Emergency Medicine; Visit Provider Surgery
PROC: 0DTJ4ZZ Resection of Appendix, Percutaneous Endoscopic Approach (ICD-10-PCS; CPT 44970; principal; 2024-07-08 14:45)
DX: K35.30 Acute appendicitis with localized peritonitis, without perforation or gangrene (principal); I11.0 Hypertensive heart disease with heart failure; I50.9 Heart failure, unspecified; R73.03 Prediabetes; I25.10 Atherosclerotic heart disease of native coronary artery without angina pectoris; K21.9 Gastro-esophageal reflux disease without esophagitis; I48.91 Unspecified atrial fibrillation; I25.2 Old myocardial infarction
CPT/HCPCS: 44970; 36415; 51702; 74176; 80048; 80053; 81001; 83690; 83735; 84100; 85025; 85610; 86850; 86900; 88304; 96374; 96375; 99285; G0378; J0131; J1100; J2371; J2405; J2543; J2704; J2710; J3010; J3490; J7030; J7120

== ENCOUNTER → 2024-07-18 08:47 | Outpatient (BNVA) | payer OTHER, SELFPAY | PROVIDERS: Visit Provider Surgery | DX: Z90.49 Acquired absence of other specified parts of digestive tract (principal); Z98.890 Other specified postprocedural states | CPT/HCPCS: 99024 ==

== ENCOUNTER 2024-07-28 23:07 | Emergency (ER) | payer OTHER, MEDICARE, SELFPAY ==
[2024-07-28 23:09] VITALS: BP 149/69; PULSE 70; RESP 15; TEMP 36.6; O2SAT 96; BMI 25.8
--- NOTE | 2024-07-28 23:22 | ECG_ITS ---
[facility]: 2024-07-28 Pat Name: Gianni Patel Department: Room: Gender: Male Non Destructive Testing Scientist: : 1945 Requested By: Paco Babcock Order Number: [id number] Reading MD: SANDY ASHBY Measurements Intervals [place] Rate: 76 P: 10 MI: 199 QRS: -66 QRSD: 118 T: 19 QT: 419 QTc: 473 Interpretive Statements SINUS RHYTHM WITH FREQUENT VENTRICULAR PREMATURE COMPLEXES PATTERN CONSISTENT WITH PULMONARY DISEASE LEFT ANTERIOR FASCICULAR BLOCK [QRS AXIS <= -45, QR IN I, RS IN II] Compared to ECG 09/24/2022 21:46:33 Atrial flutter no longer present Aberrant conduction of supraventricular beat(s) no longer present Incomplete right bundle-branch block no longer present Myocardial infarct finding no longer present T-wave abnormality no longer present Possible ischemia no longer present Electronically Signed On 07-30-2024 19:26:33 LABEL DESIGNER by SANDY ASHBY [email or web address]
--- NOTE | 2024-07-28 23:22 | XRR_ITS ---
PROCEDURE INFORMATION: Exam: XR Chest Exam date and time: 07/28/2024 11:28 PM Age: 79 years old Clinical indication: Patient HX: HTN; Weakness TECHNIQUE: Imaging protocol: Radiologic exam of the chest. Views: 1 view. COMPARISON: CT angio chest PE protcl [id number] 09/24/2022 3:38 PM FINDINGS: Lungs: Right lung base loss of volume with CP angle blunting again seen. Pleural spaces: No pneumothorax. Heart/Mediastinum: Heart remains mildly enlarged. Diffuse vascular calcification. Bones/joints: Unremarkable. XR/XR chest 1V portable [id number] IMPRESSION: 1. No acute findings. 2. A few chronic/incidental findings above.
--- NOTE | 2024-07-28 23:23 | W.ED.GENADLT ---
HPI - General Adult General: Chief complaint: General Medical Stated complaint: Left Eye and Lower Lip\Weak Shakey\BP High Time Seen by Provider: 07/28/24 23:09 Source: patient Mode of arrival: ambulatory Limitations: no limitations History of Present Illness: 79-year-old male who states that he has appendix removed 2 weeks ago he states he has been feeling generally weak. He states he also has noticed some bruising to his left thigh and his left lower lip with no known injury he is on blood thinners Eliquis for A-fib. He denies any chest pain he states that he is felt increased fatigue with activity. Denies any fever Associated symptoms: Reports malaise; Deny chest pain, dyspnea, headache(s), nausea, rash or vomiting Related Data Home Medications Medication Instructions Recorded Confirmed calcium carbonate (Tums) 200 mg PO BID PRN Indigestion 12/23/22 07/18/24 famotidine 20 mg tablet (Pepcid AC) 20 mg PO DAILY PRN Acid Reflux 12/23/22 07/18/24 nitroglycerin 0.4 mg sublingual 0.4 mg sublingual Q5M PRN Chest 12/23/22 07/18/24 tablet (Nitrostat) Pain furosemide 40 mg tablet 40 mg PO DAILY 01/12/23 07/18/24 potassium chloride 20 mEq 20 meq PO DAILY 02/09/23 07/18/24 tablet,extended release alprazolam 0.25 mg tablet 0.25 mg PO DAILY 02/28/24 07/18/24 clopidogrel 75 mg tablet (Plavix) 75 mg PO DAILY 07/08/24 07/18/24 lisinopril 10 mg tablet 10 mg PO DAILY PRN Blood Pressure 07/08/24 07/18/24 magnesium oxide 400 mg PO DAILY 07/08/24 07/18/24 metoprolol succinate 100 mg 100 mg PO DAILY 07/08/24 07/18/24 tablet,extended release 24 hr (Toprol XL) Previous Rx's Medication Instructions Recorded apixaban 5 mg tablet (Eliquis) 5 mg PO BID #120 tabs 09/28/22 aspirin 81 mg tablet,delayed 81 mg PO DAILY #60 tabs 09/28/22 release sacubitril 97 mg-valsartan 103 mg 1 tab PO BID #180 tabs 01/14/23 tablet docusate sodium 100 mg capsule 100 mg PO DAILY #7 caps 07/10/24 oxycodone 5 mg tablet 5 mg PO Q8H PRN pain #14 tabs 07/10/24 Allergies Allergy/AdvReac Type Severity Reaction Status Date / Time No Known Allergies Allergy Verified 07/28/24 23:29 Review of Systems Const: Reports: fatigue and malaise; Denies: fever(s), chills, body aches or change in appetite Eyes: Denies: blurry vision or eye discomfort ENMT: Denies: throat pain or dental pain Card: Denies: chest pain Resp: Denies: dyspnea GI: Denies: abdominal pain, nausea, vomiting or diarrhea Musc: Denies: neck pain or back pain Skin/Breast: Denies: rash Neuro: Denies: headache(s) [place]lin/Lymph: Reports: easy bruising [facility] ED PFSH: Medical History CHF (congestive heart failure), NYHA class III Prediabetes 09/24/2022 A1C 6.1 CAD (coronary artery disease) [place] in 2002 Chronic GERD Current non-smoker Smoked for 50 years and quit 10 years ago ~ 2012 Snoring Atrial flutter 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) Pericardial effusion Pleural effusion Atelectasis New onset of congestive heart failure [place] & Htn, new CHF admit [facility] For CHF 12/01/2022, ~39% LVEF Atrial fibrillation and flutter Hypertension Surgical History History of laparoscopic appendectomy 07/08/24 DR Reynolds Family History Mother Hypertension Social History Smoking and tobacco/nicotine status: former use of tobacco/nicotine Alcohol intake: never Physical Exam Const: COMMON NORMALS: no acute distress, patient oriented x3 and healthy appearing HENMT: COMMON NORMALS: normocephalic and atraumatic HEAD & SCALP: normocephalic and atraumatic OTHER: Bruise noted by left lower lip Eye: COMMON NORMALS: Equal, round and reactive pupils present and EOMs intact bilaterally PUPIL: Yes Equal, round and reactive pupils present Neck/C-Spine: COMMON NORMALS: full ROM and supple Chest: COMMONS NORMALS: normal inspection of the chest and normal palpation of entire chest wall Resp: COMMON NORMALS: normal respiratory effort, No retractions, No use of accessory muscles and clear to auscultation bilaterally AUSCULTATION: clear to auscultation bilaterally Cardio: COMMON NORMALS: regular rate, regular rhythm and No murmurs present (Cardio) RATE: regular rate RHYTHM: regular rhythm GI: COMMON NORMALS: Normal to inspection, nondistended, normoactive bowel sounds present, Soft to palpation, non-tender and no masses PALPATION: Yes Soft to palpation Extremity: COMMON NORMALS: normal to inspection and full ROM Neuro: COMMON NORMALS: patient oriented x3, moves all extremities and no focal motor deficits Psych: COMMON NORMALS: mental status grossly normal, Normal thought process present and cooperative THOUGHT PROCESS: Normal thought process present Skin: COMMON NORMALS: no rashes or lesions noted and no wounds GENERAL SKIN EXAM: no rashes or lesions noted Course Vital Signs: Vital signs: Vital Signs Temperature 97.9 F 07/28/24 23:09 Pulse Rate 70 07/28/24 23:09 Respiratory Rate 15 07/28/24 23:09 Blood Pressure 149/69 07/28/24 23:09 Pulse Oximetry 96 07/28/24 23:09 Oxygen Delivery Me thod Room Air 07/28/24 23:09 [facility] - General Adult Medical Decision Making Patient presents here with generalized weakness along with bruising around his eye and lip his blood work here is normal no signs of infection his vitals have been stable he is on Eliquis likely causes bruising his INR is normal he stable for discharge follow-up PCP return if worsening. Medical Records I reviewed the patient's medical records. Lab Data I reviewed the patient's lab results. 07/28/24 23:26 07/28/24 23:26 Radiology Impressions Chest X-Ray 07/28/24 23:22 IMPRESSION: 1. No acute findings. 2. A few chronic/incidental findings above. Laboratory Results WBC 9.95 10^3/uL (3.29-11.43) 07/28/24 23:26 RBC 4.48 10^6/uL (3.85-5.65) 07/28/24 23:26 Hgb 13.00 g/dL (11.27-16.99) 07/28/24 23: Hct 40.8 % (37-53) 07/28/24 23: MCV 91.1 fl (82-101) 07/28/24 23: MCH 29.0 pg (27-33) 07/28/24: MCHC 31.9 g/dL (30-55) 07/28/24: RDW 12.9 % (12.1-15.1) 07/28/24: Plt Count 302 10^3/cmm (157-399) 07/28/24: MPV 10.3 fL (7.4-10.4) 07/28/24: Neut % (Auto) 67.6 % 07/28/24 23: Lymph % (Auto) 22.3 % 07/28/24: [place] % (Auto) 7.7 % 07/28/24: Eos % (Auto) 1.4 % 07/28/24: Baso % (Auto) 0.5 % 07/28/24: Neut # (Auto) 6.72 10^3/uL (1.8-7.7) 07/28/24: Lymph # (Auto) 2.2 10^3/uL (0.8-4.8) 07/28/24 23: [place] # (Auto) 0.8 10^3/uL (0.2-0.9) 07/28/24: Eos # (Auto) 0.1 10^3/uL (0.0-0.8) 07/28/24 23: Baso # (Auto) 0.1 10^3/uL (0.0-0.1) 07/28/24: Nucleated RBC % (auto) 0 % 07/28/24: Nucleated RBCs # 0.0 /100WBC 07/28/24: PT 16.20 SECONDS (12.1-14.9) H 07/28/24: INR 1.25 (0.8-1.2) H 07/28/24 23: Sodium 140 mmol/L (136-145) 07/28/24:26 Potassium 4.5 mmol/L (3.5-5.1) 07/28/24 23:26 Chloride 104 mmol/L (98-107) 07/28/24 23:26 Carbon Dioxide 24 mmol/L (22-29) 07/28/24 23:26 Anion Gap 16.5 (5-19) 07/28/24 23:26 BUN 26 mg/dL (8-23) H 07/28/24 23:26 Creatinine 1.4 mg/dL (0.7-1.2) H 07/28/24 23:26 GFR Calculation Not Reportable 07/28/24 23:26 Glucose 125 mg/dL (65-115) H 07/28/24 23:26 Calculated Osmolality 296 mOsm/kg (285-295) H 07/28/24 23:26 Calcium 8.9 mg/dL (8.5-10.5) 07/28/24 23:26 Total Bilirubin 0.4 mg/dL (0.15-1.2) 07/28/24 23:26 AST 13 U/L (0-40) 07/28/24 23:26 ALT 15 U/L (0-41) 07/28/24 23:26 Alkaline Phosphatase 136 U/L (40-130) H 07/28/24 23:26 Total Protein 7.2 g/dL (6.6-8.7) 07/28/24 23:26 Albumin 4.3 g/dL (3.5-5.2) 07/28/24 23:26 Globulin 2.9 g/dL (1.3-4.6) 07/28/24 23:26 Urine RBC 0-2 /hpf (0-2) 07/29/24 00:56 Urine WBC 0-5 /hpf (0-5) 07/29/24 00:56 Ur Squamous Epith Cells 0-5 /hpf (0-5) 07/29/24 00:56 Amorphous Sediment Not Reportable 07/29/24 00:56 Urine Bacteria None seen /hpf (NONE) 07/29/24 00:56 Hyaline Casts 6.17 /lpf 07/29/24 00:56 All radiology interpretation(s) finalized by discharge EKG Data EKG 1: I personally reviewed and interpreted this EKG as follows: EKG interpretation date: 07/28/24 EKG interpretation time: 23:30 Interpretation: nsr hr [address] elevation qrs 118 qtc 450 Computer generated interpretation: Chest X-Ray 07/28/24 23:22 IMPRESSION: 1. No acute findings. 2. A few chronic/incidental findings above. Discharge Plan Discharge Patient Disposition: Home Clinical Impression: Generalized weakness, Bruising Prescriptions: No Action calcium carbonate [Tums] 200 mg calcium (500 mg) tablet,chewable 200 mg PO BID PRN (Reason: Indigestion) famotidine [Pepcid AC] 20 mg tablet 20 mg PO DAILY PRN (Reason: Acid Reflux) nitroglycerin [Nitrostat] 0.4 mg tablet, sublingual 0.4 mg sublingual Q5M PRN (Reason: Chest Pain) Rx Instructions: do not exceed 3 doses per episode potassium chloride 20 mEq tablet extended release 20 meq PO DAILY alprazolam 0.25 mg tablet 0.25 mg PO DAILY furosemide 40 mg tablet 40 mg PO DAILY sacubitril-valsartan 97-103 mg tablet 1 tab PO BID Qty: 180 3RF clopidogrel [Plavix] 75 mg Tablet 75 mg PO DAILY Hold Instructions: Resume on 07/13/24. lisinopril 10 mg Tablet 10 mg PO DAILY PRN (Reason: Blood Pressure) magnesium oxide 400 mg magnesium Tablet 400 mg PO DAILY metoprolol succinate [Toprol XL] 100 mg Tablet Extended Release 24 Hr 100 mg PO DAILY oxycodone 5 mg tablet 5 mg PO Q8H PRN (Reason: pain) Qty: 14 0RF docusate sodium 100 mg capsule 100 mg PO DAILY Qty: 7 0RF aspirin 81 mg Tablet,Delayed Release (Dr/Ec) 81 mg PO DAILY Qty: 60 2RF Hold Instructions: Resume on 07/13/24. Eliquis 5 mg tablet 5 mg PO BID Qty: 120 5RF Hold Instructions: Resume on 07/13/24. 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
[2024-07-28 23:32] LABS: Basophils # 0.1 10^3/uL (0.0-0.1); Basophils % 0.5 %; Eosinophils # 0.1 10^3/uL (0.0-0.8); Eosinophils % 1.4 %; Hematocrit 40.8 % (37-53); Lymphocytes # 2.2 10^3/uL (0.8-4.8); Lymphocytes % 22.3 %; Mean Corpuscular HGB Conc 31.9 g/dL (30-55); Mean Corpuscular Volume 91.1 fl (82-101); Mean Platelet Volume 10.3 fL (7.4-10.4); Monocytes # 0.8 10^3/uL (0.2-0.9); Monocytes % 7.7 %; Neutrophils # 6.72 10^3/uL (1.8-7.7); Neutrophils % 67.6 %; Nucleated Red Blood Cells % 0 %; Platelet Count 302 10^3/cmm (157-399); Red Blood Count 4.48 10^6/uL (3.85-5.65); Red Cell Distribution Width 12.9 % (12.1-15.1); White Blood Count 9.95 10^3/uL (3.29-11.43)
[2024-07-28 23:45] LABS: INR 1.25 (0.8-1.2)
[2024-07-28] MEDS: sodium chloride 0.9% 1,000 ML 999 ML IV (23:48)
[2024-07-28 23:54] LABS: Alanine Aminotransferase 15 U/L (0-41); Albumin Level 4.3 g/dL (3.5-5.2); Alkaline Phosphatase 136 U/L (40-130); Anion Gap 16.5 (5-19); Aspartate Amino Transferase 13 U/L (0-40); Blood Urea Nitrogen 26 mg/dL (8-23); Calcium 8.9 mg/dL (8.5-10.5); Carbon Dioxide 24 mmol/L (22-29); Chloride 104 mmol/L (98-107); Creatinine Clr Calc Pharmacy 43.5015; Globulin 2.9 g/dL (1.3-4.6); Glucose 125 mg/dL (65-115); Osmolality Calculated 296 mOsm/kg (285-295); Potassium 4.5 mmol/L (3.5-5.1); Sodium 140 mmol/L (136-145); Total Bilirubin 0.4 mg/dL (0.15-1.2); Total Protein 7.2 g/dL (6.6-8.7)
[2024-07-29 01:10] LABS: Bacteria Urine None Seen /hpf; Hyaline Casts Urine 6.17 /lpf; RBC Urine 0-2 /hpf (0-2); Squamous Epithelial Cell Urine 0-5 /hpf (0-5); WBC Urine 0-5 /hpf (0-5)
[2024-07-29 01:35] LABS: Add Urine Microscopic? YES; Bilirubin Urine Negative (Negative); Blood Urine Negative (Negative); Glucose Urine UA Negative (Normal); Ketones Urine Negative (Negative); Leukocyte Esterase Urine Negative (Negative); Nitrate Urine Negative (Negative); Protein Urine Negative (Negative); Specific Gravity, Urine 1.014 (1.005-1.030); Urine Appearance Clear (CLEAR); Urine Color Yellow (Yellow); Urobilinogen Urine 0.2 mg/dL (Negative); pH Urine 5.5 (5-7)
== END 2024-07-29 02:30 | disposition home or self-care (01) ==
PROVIDERS: Emergency Provider Emergency Medicine
DX: R53.1 Weakness (principal); T14.8XXA Other injury of unspecified body region, initial encounter; Z79.01 Long term (current) use of anticoagulants; X58.XXXA Exposure to other specified factors, initial encounter; I11.0 Hypertensive heart disease with heart failure; I50.9 Heart failure, unspecified; I25.10 Atherosclerotic heart disease of native coronary artery without angina pectoris
CPT/HCPCS: 36415; 71045; 80053; 81001; 85025; 85610; 93005; 99285; J7030

== ENCOUNTER → 2024-08-28 11:10 | Outpatient (BNVA) | payer OTHER, SELFPAY | PROVIDERS: Visit Provider Internal Medicine | DX: I11.0 Hypertensive heart disease with heart failure (principal); I50.22 Chronic systolic (congestive) heart failure; I48.91 Unspecified atrial fibrillation; I48.92 Unspecified atrial flutter; I25.10 Atherosclerotic heart disease of native coronary artery without angina pectoris; K21.9 Gastro-esophageal reflux disease without esophagitis; Z87.891 Personal history of nicotine dependence; Z79.01 Long term (current) use of anticoagulants | CPT/HCPCS: 99214 ==

== ENCOUNTER 2024-11-30 09:43 | Emergency (ER) | payer OTHER, SELFPAY ==
[2024-11-30 10:21] VITALS: BP 142/61; PULSE 58; RESP 20; TEMP 36.6; O2SAT 96; BMI 25.9
[2024-11-30 11:09] VITALS: BP 164/92; PULSE 54; O2SAT 96
[2024-11-30 11:10] LABS: Basophils # 0.1 10^3/uL (0.0-0.1); Basophils % 0.6 %; Eosinophils # 0.2 10^3/uL (0.0-0.8); Eosinophils % 2.5 %; Hematocrit 37.4 % (37-53); Lymphocytes % 25.3 %; Mean Corpuscular Hemoglobin 26.9 pg (27-33); Mean Corpuscular Volume 86.8 fl (82-101); Mean Platelet Volume 10.3 fL (7.4-10.4); Monocytes # 0.6 10^3/uL (0.2-0.9); Monocytes % 7.8 %; Neutrophils % 63.3 %; Nucleated Red Blood Cells % 0 %; Platelet Count 267 10^3/cmm (157-399); Red Blood Count 4.31 10^6/uL (3.85-5.65); Red Cell Distribution Width 14.4 % (12.1-15.1); White Blood Count 7.74 10^3/uL (3.29-11.43)
--- NOTE | 2024-11-30 11:23 | W.ED.GIBLEED ---
HPI - GI Bleed General: Chief complaint: GI Bleed Stated complaint: anal bleeding Time Seen by Provider: 11/30/24 10:49 History of Present Illness: 79-year-old male on Plavix and Eliquis presents emergency department after he had some bright red blood squirting from around his anus. He believes it is due to an external hemorrhoid. He reports no pain with it. He does occasionally have constipation. Patient reports it started bleeding shortly after 8 AM this morning and would not stop. It takes him about 1 hour to get here. He rolled up a rag and sat on it the entire way. Now, fortunately, it has stopped. He does not feel dizzy or lightheaded. No other complaints. Related Data Home Medications ?Medication ?Instructions ?Recorded ?Confirmed calcium carbonate (Tums) 200 mg PO BID PRN Indigestion 12/23/22 08/28/24 famotidine 20 mg tablet (Pepcid AC) 20 mg PO DAILY PRN Acid Reflux 12/23/22 08/28/24 nitroglycerin 0.4 mg sublingual 0.4 mg sublingual Q5M PRN Chest 12/23/22 08/28/24 tablet (Nitrostat) Pain furosemide 40 mg tablet 40 mg PO DAILY 01/12/23 08/28/24 potassium chloride 20 mEq 20 meq PO DAILY 02/09/23 08/28/24 tablet,extended release alprazolam 0.25 mg tablet 0.25 mg PO DAILY 02/28/24 08/28/24 magnesium oxide 400 mg PO DAILY 07/08/24 08/28/24 Previous Rx's ?Medication ?Instructions ?Recorded apixaban 5 mg tablet (Eliquis) 5 mg PO BID #120 tabs 09/28/22 Held on 07/10/24. Instructions: Resume on 07/13/24. aspirin 81 mg tablet,delayed 81 mg PO DAILY #60 tabs 09/28/22 release Held on 11/30/24. Instructions: Resume on 12/17/24. Hold aspirin until your doctor tells you to resume. Continue plavix and eliquis as directed sacubitril 97 mg-valsartan 103 mg 1 tab PO BID #180 tabs 01/14/23 tablet docusate sodium 100 mg capsule 100 mg PO DAILY #7 caps 11/05/24 clopidogrel 75 mg tablet (Plavix) 75 mg PO DAILY #90 tabs 08/28/24 metoprolol succinate 200 mg 100 mg (1/2 x 200 mg) PO DAILY #90 09/03/24 tablet,extended release 24 hr tabs glycerin (adult) 1 supp DC BID PRN constipation #25 11/30/24 ea polyethylene glycol 3350 17 gram 17 g PO BID PRN constipation #100 11/30/24 oral powder packet (Miralax) ea sennosides 8.6 mg-docusate sodium 1 tab-cap PO BID PRN constipation 11/30/24 50 mg tablet (Senna with Docusate #30 tabs Sodium) Allergies Allergy/AdvReac Type Severity Reaction Status Date / Time No Known Allergies Allergy Verified 11/30/24 10:30 Review of Systems General: Reports: 10 or more systems reviewed and unremarkable except in HPI and below [facility] PFSH: Medical History CHF (congestive heart failure), NYHA class III Prediabetes 09/24/2022 A1C 6.1 CAD (coronary artery disease) [place] in 2002 Chronic GERD Current non-smoker Smoked for 50 years and quit 10 years ago ~ 2012 Snoring Atrial flutter 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) Pericardial effusion Pleural effusion Atelectasis New onset of congestive heart failure [place] & Htn, new CHF admit [facility] For CHF 12/01/2022, ~39% LVEF Atrial fibrillation and flutter Hypertension Surgical History History of laparoscopic appendectomy 07/08/24 DR Reynolds Family History Mother Hypertension Social History Smoking and tobacco/nicotine status: former use of tobacco/nicotine Alcohol intake: never Physical Exam Const: COMMON NORMALS: no limitations, alert and well nourished EXAM LIMITATIONS: no altered mental status HENMT: COMMON NORMALS: normocephalic, atraumatic and external ears normal HEAD & SCALP: normocephalic and atraumatic EXTERNAL EAR: Yes external ears normal MOUTH: no muffled voice Eye: COMMON NORMALS: EOMs intact bilaterally, conjunctivae normal and no scleral icterus CONJUNCTIVA: Yes conjunctivae normal Neck/C-Spine: GENERAL: Yes normal visual inspection and Yes trachea midline Resp: COMMON NORMALS: normal respiratory effort and No use of accessory muscles Cardio: RATE: bradycardic RHYTHM: abnormal rhythm GI: COMMON NORMALS: Soft to palpation and non-tender PALPATION: Yes Soft to palpation and No Guarding due to palpation present (GI) RECTAL EXAM: Yes other (No obvious hemorrhoids. Small skin defect might be a flattened hemorrhoid ) Extremity: COMMON NORMALS: normal to inspection Neuro: COMMON NORMALS: moves all extremities, no focal motor deficits and no sensory deficits noted SENSORIUM/ORIENTATION: Yes alert SPEECH: speech normal Psych: COMMON NORMALS: mental status grossly normal, Normal thought process present, cooperative, normal affect and speech normal SPEECH: Yes normal speech THOUGHT PROCESS: Normal thought process present Skin: COMMON NORMALS: no rashes or lesions noted, turgor normal and no jaundice GENERAL SKIN EXAM: no rashes or lesions noted and turgor normal Course Vital Signs: Vital signs: Vital Signs Temperature 97.9 F 11/30/24 10:21 Pulse Rate 54 L 11/30/24 11:09 Respiratory Rate 20 H 11/30/24 10:21 Blood Pressure 164/92 11/30/24 11:09 Pulse Oximetry 96 11/30/24 11:09 Oxygen Delivery Me thod Room Air 11/30/24 11:09 MDM - GI Bleed Medical Decision Making Rectal examination was performed. There is a small skin defect that is not bleeding. It could be a small flattened decompressed hemorrhoid or it might be a small fissure. I did not perform internal rectal examination so that we would not precipitate any further bleeding since he just got it stopped. Hemoglobin is 11.6 down from 13 approximately 5 months ago. Since there is no obvious need for surgical repair, we will focus on keeping his bowel movements from becoming strenuous and constipated. Patient will be prescribed a variety of medications he may use as needed in order to have soft smooth bowel movements without straining. If he has further issues, he can follow-up with colorectal surgery for a anoscopy. Lab Data I reviewed the patient's lab results. 11/30/24 10:56 11/30/24 10:56 Laboratory Results WBC 7.74 10^3/uL (3.29-11.43) 11/30/24 10:56 RBC 4.31 10^6/uL (3.85-5.65) 11/30/24 10:56 Hgb 11.60 g/dL (11.27-16.99) 11/30/24 10:56 Hct 37.4 % (37-53) 11/30/24 10:56 MCV 86.8 fl (82-101) 11/30/24 10:56 MCH 26.9 pg (27-33) L 11/30/24 10:56 MCHC 31.0 g/dL (30-55) 11/30/24 10:56 RDW 14.4 % (12.1-15.1) 11/30/24 10:56 Plt Count 267 10^3/cmm (157-399) 11/30/24 10:56 MPV 10.3 fL (7.4-10.4) 11/30/24 10:56 Neut % (Auto) 63.3 % 11/30/24 10:56 Lymph % (Auto) 25.3 % 11/30/24 10:56 [place] % (Auto) 7.8 % 11/30/24 10:56 Eos % (Auto) 2.5 % 11/30/24 10:56 Baso % (Auto) 0.6 % 11/30/24 10:56 Neut # (Auto) 4.90 10^3/uL (1.8-7.7) 11/30/24 10:56 Lymph # (Auto) 2.0 10^3/uL (0.8-4.8) 11/30/24 10:56 [place] # (Auto) 0.6 10^3/uL (0.2-0.9) 11/30/24 10:56 Eos # (Auto) 0.2 10^3/uL (0.0-0.8) 11/30/24 10:56 Baso # (Auto) 0.1 10^3/uL (0.0-0.1) 11/30/24 10:56 Nucleated RBC % (auto) 0 % 11/30/24 10:56 Nucleated RBCs # 0.0 /100WBC 11/30/24 10:56 Sodium 139 mmol/L (136-145) 11/30/24 10:56 Potassium 4.3 mmol/L (3.5-5.1) 11/30/24 10:56 Chloride 105 mmol/L (98-107) 11/30/24 10:56 Carbon Dioxide 22 mmol/L (22-29) 11/30/24 10:56 Anion Gap 16.3 (5-19) 11/30/24 10:56 BUN 28 mg/dL (8-23) H 11/30/24 10:56 Creatinine 1.4 mg/dL (0.7-1.2) H 11/30/24 10:56 GFR Calculation Not Reportable 11/30/24 10:56 Glucose 102 mg/dL (65-115) 11/30/24 10:56 Calculated Osmolality 294 mOsm/kg (285-295) 11/30/24 10:56 Calcium 9.0 mg/dL (8.5-10.5) 11/30/24 10:56 No radiology studies performed this visit Discharge Plan Discharge Patient Disposition: Home Clinical Impression: Anal bleeding, Anticoagulated by anticoagulation treatment Condition: Stable Prescriptions: New sennosides-docusate sodium [Senna with Docusate Sodium] 8.6-50 mg tablet 1 tab-cap PO BID PRN (Reason: constipation) Qty: 30 0RF polyethylene glycol 3350 [Miralax] 17 gram powder in packet 17 g PO BID PRN (Reason: constipation) Qty: 100 0RF glycerin (adult) Suppository 1 supp DC BID PRN (Reason: constipation) Qty: 25 0RF Held aspirin 81 mg Tablet,Delayed Release (Dr/Ec) 81 mg PO DAILY Qty: 60 2RF Hold Instructions: Resume on 12/17/24. Hold aspirin until your doctor tells you to resume. Continue plavix and eliquis as directed No Action calcium carbonate [Tums] 200 mg calcium (500 mg) tablet,chewable 200 mg PO BID PRN (Reason: Indigestion) famotidine [Pepcid AC] 20 mg tablet 20 mg PO DAILY PRN (Reason: Acid Reflux) nitroglycerin [Nitrostat] 0.4 mg tablet, sublingual 0.4 mg sublingual Q5M PRN (Reason: Chest Pain) Rx Instructions: do not exceed 3 doses per episode clopidogrel [Plavix] 75 mg tablet 75 mg PO DAILY Qty: 90 3RF potassium chloride 20 mEq tablet extended release 20 meq PO DAILY alprazolam 0.25 mg tablet 0.25 mg PO DAILY furosemide 40 mg tablet 40 mg PO DAILY sacubitril-valsartan 97-103 mg tablet 1 tab PO BID Qty: 180 3RF metoprolol succinate 200 mg tablet extended release 24 hr 100 mg PO DAILY Qty: 90 3RF magnesium oxide 400 mg magnesium Tablet 400 mg PO DAILY docusate sodium 100 mg capsule 100 mg PO DAILY Qty: 7 0RF Eliquis 5 mg tablet 5 mg PO BID Qty: 120 5RF Discharge Orders: Discharge ED (Routine); Ordered 11/30/24 Ordered By: Isreal Damian Referrals: Kirti Hannah MD [Primary Care Provider] - Patient Instructions: Rectal Bleeding (ED), Pain Management Print Language: Swedish Coding Level of Care Code 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
[2024-11-30 11:27] LABS: Anion Gap 16.3 (5-19); Blood Urea Nitrogen 28 mg/dL (8-23); Carbon Dioxide 22 mmol/L (22-29); Chloride 105 mmol/L (98-107); Glucose 102 mg/dL (65-115); Osmolality Calculated 294 mOsm/kg (285-295); Potassium 4.3 mmol/L (3.5-5.1); Sodium 139 mmol/L (136-145)
[2024-11-30 11:57] VITALS: BP 130/57; PULSE 56; O2SAT 96
== END 2024-11-30 11:58 | disposition home or self-care (01) ==
PROVIDERS: Physician Assistant; Emergency Provider Emergency Medicine; PCP Family Medicine
DX: K62.5 Hemorrhage of anus and rectum (principal); Z79.01 Long term (current) use of anticoagulants; Z79.02 Long term (current) use of antithrombotics/antiplatelets; Z87.891 Personal history of nicotine dependence; I25.10 Atherosclerotic heart disease of native coronary artery without angina pectoris; I11.0 Hypertensive heart disease with heart failure; I50.9 Heart failure, unspecified
CPT/HCPCS: 36415; 80048; 85025; 99283

== ENCOUNTER → 2025-02-26 13:57 | Outpatient (BNVA) | payer OTHER, SELFPAY | PROVIDERS: PCP Family Medicine; Visit Provider Nurse Practitioner Family | DX: I11.0 Hypertensive heart disease with heart failure (principal); I50.22 Chronic systolic (congestive) heart failure; I48.91 Unspecified atrial fibrillation; I48.92 Unspecified atrial flutter; I25.10 Atherosclerotic heart disease of native coronary artery without angina pectoris; K21.9 Gastro-esophageal reflux disease without esophagitis; Z79.01 Long term (current) use of anticoagulants | CPT/HCPCS: 99214 ==

== ENCOUNTER 2025-04-04 07:53 | Outpatient (CLI) | payer OTHER, SELFPAY ==
--- NOTE | 2025-04-04 08:30 | USCV_ITS ---
Gianni Patel Age: 79 Gender: M : 1945 Exam Date: 04/04/2025 08:30 Ordering Phys: Nathalia Rowley NP Technologist: Exam [place] [facility] [place]: sob cp murmur BP: 130 / 75 HR: 75 Rhythm: Sinus Technical Quality: Adequate MEASUREMENTS (Male / Female) Normal Values 2D ECHO LV Diastolic Diameter PLAX 4.8 cm 4.2 - 5.9 / 3.9 - 5.3 cm IVS Diastolic Thickness 1.3 cm 0.6 - 1.0 / 0.6 - 0.9 cm IVS Systolic Thickness 1.5 cm LVPW Diastolic Thickness 1.3 cm 0.6 - 1.0 / 0.6 - 0.9 cm LVPW Systolic Thickness 1.8 cm LVOT Diameter 2.1 cm LV Ejection Fraction 2D Teich 64.4 % LV Ejection Fraction MOD 4C 62.6 % LV Ejection Fraction MOD 2C 75.1 % LV Ejection Fraction 2C AL 75.5 % LA Diameter 4.5 cm RA Systolic Volume 4C AL 48.6 ml RA Systolic Volume 4C MOD 47.1 ml LA Sys Volume AL 76.6 cm cubed LA Sys Volume Index AL 38.1 cm cubed/m squared Aorta at Sinotubular Diameter 3.3 cm IVC Diameter 1.4 cm M-MODE LA Ao Ratio MM 1.2 AV Cusp Separation MM 2.4 cm DOPPLER AV Peak Velocity 122.0 cm/s LVOT Peak Velocity 70.0 cm/s AV Area Cont Eq vti 2.0 cm squared AV Area Cont Eq pk 1.9 cm squared MV Peak Velocity 102.0 cm/s MV Area PHT 2.9 cm squared Mitral E to A Ratio 0.9 TR Peak Velocity 59.0 cm/s TR Peak Gradient 1.4 mmHg PV Peak Velocity 101.0 cm/s FINDINGS Left Ventricle Normal left ventricular size, systolic function and wall thickness, with no regional wall motion abnormalities. Left ventricular ejection fraction is estimated at 60 %. Grade I/IV diastolic dysfunction (abnormal relaxation filling pattern), normal to mildly elevated filling pressures. Right Ventricle The right ventricle is normal in size and function. Right Atrium The right atrium is normal in size. Left Atrium The left atrium is normal in size. Mitral Valve Structurally normal mitral valve without significant stenosis or prolapse. There is no mitral regurgitation. Aortic Valve Structurally normal aortic valve without significant sclerosis or stenosis. There is no aortic regurgitation. Tricuspid Valve Structurally normal tricuspid valve without significant stenosis or regurgitation. Pulmonary artery systolic pressure is normal. Pulmonic Valve Structurally normal pulmonic valve without significant stenosis. There is no pulmonic regurgitation. Pericardium Normal pericardium without effusion. Aorta Normal ascending aorta dimension. IVC The inferior vena cava appears normal. CONCLUSIONS Normal left ventricular size, systolic function and wall thickness, with no regional wall motion abnormalities. Left ventricular ejection fraction is estimated at 60 %. Grade I/IV diastolic dysfunction (abnormal relaxation filling pattern), normal to mildly elevated filling pressures. There is no pericardial effusion. No significant valve abnormalities. Right atrial pressure is around 5 mm of mercury. Lizzie Tinsley MD (Electronically Signed) Final Date: 04 April 2025 13:19 S
== END 2025-04-04 07:54 | disposition home or self-care (01) ==
LOC: RAD 07:54
PROVIDERS: PCP Family Medicine; Visit Provider Nurse Practitioner Family
DX: I50.20 Unspecified systolic (congestive) heart failure (principal); I51.89 Other ill-defined heart diseases
CPT/HCPCS: 93306

== ENCOUNTER → 2025-08-26 14:53 | Outpatient (BNVA) | payer OTHER, SELFPAY | PROVIDERS: PCP Family Medicine; Visit Provider Internal Medicine | DX: I11.0 Hypertensive heart disease with heart failure (principal); I50.22 Chronic systolic (congestive) heart failure; I48.91 Unspecified atrial fibrillation; I48.92 Unspecified atrial flutter; I25.10 Atherosclerotic heart disease of native coronary artery without angina pectoris; K21.9 Gastro-esophageal reflux disease without esophagitis; R00.1 Bradycardia, unspecified; Z87.891 Personal history of nicotine dependence | CPT/HCPCS: 99214 ==